=== PATIENT | female | born 1960 | race Two or more races ===

== ENCOUNTER 2024-09-05 19:20 | Inpatient (IN) | payer MEDICARE, BC, MEDICAID, SELFPAY ==
[2024-09-05 19:32] VITALS: PULSE 78; RESP 98; BMI 30.2
--- NOTE | 2024-09-05 19:33 | PD.EDADULT ---
ED General RME/HPI General Chief complaint: Abdominal Pain Stated complaint: ABDOMINAL PAIN Time Seen by Provider: 09/05/24 19:25 Arrival date/time: 09/05/24 19:20 CC: Distended abdomen HPI patient presents the ER via EMS from [facility] with the patient has a distended abdomen. 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 EMS report prior history of similar events. Patient her shoulders when asked any questions. Patient is awake alert and looking around but nonverbal. Vital signs per EMS are stable. RME / HPI RME / HPI narrative: HPI: Ms Mccoy a 63-year-old non verbal female patient with significant medical history who was brought in from [facility] with a chief complaint of distended abdomen. She has multiple hospitalizations for the same. Last BM : >12 hours ago Past medical history: CVA w/ residual right-sided weakness and expressive aphasia s/p PEG tube for malnutrition migraines and depression recurrent hospital admission for small bowel obstruction Social history: From [facility] , non verbal at baseline No past hx of tobacco smoking or alcohol use. Related Data Home Medications ?Medication ?Instructions ?Recorded ?Confirmed atorvastatin 40 mg tablet 40 mg feeding tube HS 07/31/21 05/28/24 hyperlipidemia bisacodyl 10 mg rectal suppository 10 mg OK Q72H PRN Constipation 11/17/21 05/28/24 (Dulcolax (bisacodyl)) amitriptyline 50 mg tablet 25 mg PO HS Depression 09/18/22 05/28/24 magnesium hydroxide 400 mg/5 mL 30 ml PO Q72H PRN Constipation 04/07/23 05/28/24 oral suspension (Milk of Magnesia) ondansetron HCl 8 mg tablet 8 mg PO Q6HR PRN Nausea/Vomiting 04/07/23 05/28/24 alendronate 70 mg tablet 70 mg PO QWEEK Osteoporosis 01/12/24 05/28/24 lactose-reduced food with fiber See Rx Instructions .Route .COMPLEX 01/12/24 05/28/24 0.06 gram-1.2 kcal/mL oral liquid (Jevity 1.2 Eleno) linaclotide 145 mcg capsule 145 mcg PO QDAY constipation 01/12/24 05/28/24 (Linzess) potassium chloride 20 mEq 20 meq BID 01/12/24 05/28/24 tablet,extended release(part/cryst) acetaminophen 325 mg tablet 325 mg PO BID PRN Mild Pain (1-3) 05/28/24 05/28/24 (Tylenol) docusate sodium 100 mg tablet 100 mg PO BID Constipation 05/28/24 05/28/24 lactulose 10 gram/15 mL oral 30 ml feeding tube QDAY 05/28/24 05/28/24 solution (Enulose) sodium phosphates 19 gram-7 118 ml OK QDAY PRN Constipation 05/28/24 05/28/24 gram/118 mL enema (Fleet Enema) Allergies Allergy/AdvReac Type Severity Reaction Status Date / Time hydrocodone [From [facility]] Allergy Severe Anxiety Verified 01/11/24 19:58 NSAIDS (Non-Steroidal Allergy Severe UNKNOWN Verified 01/11/24 19:58 Anti-Inflamma prochlorperazine Allergy Severe UNKNOWN Verified 01/11/24 19:58 ketorolac Allergy Intermediate UNKNOWN Verified 01/11/24 19:58 milk Allergy Intermediate VOMITING Verified 01/11/24 19:58 paroxetine Allergy Intermediate VOMITING Verified 07/31/21 15:10 codeine Allergy Mild ITCHING Verified 01/11/24 19:58 morphine Allergy Mild Swelling Verified 01/11/24 19:58 sulfamethoxazole Allergy Unknown Verified 01/11/24 19:58 trimethoprim Allergy Unknown Verified 01/11/24 19:58 Review of Systems Review of Systems ROS Unobtainable: unobtainable due to mental status Past Medical History Past Medical History NEUROLOGIC: Positive Neurological Disorders, Cerebrovascular Accident, Transient Ischemic Attacks (TIA), Peripheral Neuropathy and Migraine; Negative Dementia, Alzheimer's Disease, Parkinson's Disease, Brain Tumor, Meningitis, Seizures, Epilepsy, Multiple Sclerosis, Cerebral Palsy, Amyotrophic Lateral Sclerosis (ALS/Radha Gehrig's), Guillain-Guadalupita Syndrome, Spina Bifida, Paralysis, Valentine's Palsy, Subdural Hematoma, Head Trauma, Spinal Cord Injury or Traumatic Brain Injury CARDIAC: Positive Cardiac Disorders, Hypercholesterolemia, Hypertension and Hypotension; Negative Myocardial Infarction, Cardiac Arrhythmia, Atrial Fibrillation, Angina, Heart Murmur, Coronary Artery Disease, Atherosclerotic Heart Disease, Peripheral Vascular Disease, Aneurysm, Congestive Heart Failure, Congenital Heart Disease, Valvular Heart Disease, Rheumatic Fever, Cardiomyopathy, Edema, Pericarditis, Cellulitis, Deep Vein Thrombosis or Varicose Veins RESPIRATORY: Positive Chronic Obstructive Pulmonary Disease (COPD) and Asthma; Negative Bronchitis, Emphysema, Pneumonia, Pulmonary Fibrosis, Cystic Fibrosis, Tuberculosis, Pulmonary Embolism, Pulmonary Edema or Sleep Apnea GASTROINTESTINAL: Positive Gastrointestinal Disorders, Cirrhosis, Esparza's Esophagus, Hiatal Hernia and Gastroesophageal Reflux Disease; Negative Hepatitis, Pancreatitis, Celiac Disease, Gall Bladder Disease, Gastrointestinal Bleed, Esophageal Varices, Colitis, Ulcerative Colitis, Diverticulitis, Diverticulosis, Ulcer, Colorectal Cancer, Irritable Bowel, Crohn's Disease, Obstructive Bowel, Hemorrhoids or Obesity GENITOURINARY: Negative Genitourinary Disorders, Renal Disease, Kidney Stones, Polycystic Kidney Disease, Neurogenic Bladder, Inguinal Hernia, Dialysis, Prostate Cancer or Benign Prostatic Hyperplasia REPRODUCTIVE: Positive Previous Pregnancies; Negative Breast Cancer, Endometriosis, Genital Herpes, Gonorrhea, Pelvic Inflammatory Disease, Syphilis, Testicular Cancer or Uterine Prolapse MUSCULOSKELETAL: Positive Musculoskeletal Disorders, Arthritis and Carpal Tunnel Syndrome; Negative Muscular Dystrophy, Myasthenia Gravis, Marfan's Syndrome, Rheumatoid Arthritis, Osteoporosis, Degenerative Disk Disease, Gout, Scoliosis, Fibromyalgia, Fractures, Degenerative Joint Disease, Osteomyelitis or Poliovirus ENT: Negative Cataracts, Glaucoma, Blind, Retinal Detachment, Macular Degeneration, Ear Infection, Deafness, Head Trauma or Eye Prosthesis ENDOCRINE: Negative Endocrine Disorders, Diabetes Mellitus Type 1, Diabetes Mellitus Type 2, Hypoglycemia, Hampton's Syndrome, Barron's Disease, Hyperthyroidism, Hypothyroidism, Parathyroid Disease, Pituitary Disease, Systemic Lupus Erythematosus, Syndrome of Inappropriate Antidiuretic Hormone (SIADH), Adrenal Disease or Graves' Disease HEMATOLOGIC: Negative Blood Disorders, Anemia, Leukemia, Hemophilia, Thalassemia, Sickle Cell Disease or Clotting Problems PSYCHO/SOCIAL: Positive Schizophrenia, Recreational Drug Use, Bipolar Disorder, Depression and Anxiety; Negative Psychiatric Problems, Behavior Problems, Self-Mutilation, Attention Deficit Disorder, Attention Deficit Hyperactivity Disorder, Depression, Post Traumatic Stress Disorder or Eating Disorder OTHER HISTORY: Positive Hospitalization and Falls; Negative Autoimmune Disease, Down Syndrome, Autism, Developmental Delay, Shingles, Blood Transfusions, Blood Transfusion Reaction, Anesthesia Reactions, Organ Transplant, Chemotherapy, Radiation Therapy, Hyperbaric Therapy, MRSA, Clostridium Difficile, Cancer, Breast Cancer, Cervical Cancer, Colorectal Cancer, Lung Cancer, Ovarian Cancer, Prostate Cancer or Testicular Cancer Family History FAMILY HISTORY: Negative Family Psychiatric Problems, Family Respiratory Disorders, Family Cardiac Disorders, Family Gastrointestinal Problems, Family Cancer, Family Surgery or Family Anesthesia Reaction Surgical History SURGICAL: Positive Abdominal Surgery, Gastrostomy, Bowel Surgery and Joint Replacement; Negative Cardiac Surgery, Open Heart Surgery, Coronary Artery Bypass Graft, Valve Replacement, Vascular Surgery, Coronary Stent, Cardiac Catheterization, Pacemaker, Angiogram, Auto Implanted Cardiovert Defib, Carotid Endarterectomy, Endocrine Surgery, Thyroidectomy, Ear Surgery, Tympanostomy Tube, Eye Surgery, Nose Surgery, Oral Surgery, Tonsillectomy, Adenoidectomy, Cochlear Implant, Corneal Transplant, Throat Surgery, Tracheostomy, Gastric Bypass Surgery, Nephrectomy, Transurethral Resection, Amputation, Open Reduction Internal Fixation, Arthroscopy, Neurologic Surgery, Brain Shunt, Mastectomy, Lumpectomy, Hysterectomy, Tubal Ligation, Section, Vasectomy or Organ Transplant Social History SMOKING STATUS: Former smoker SECOND HAND EXPOSURE: No SUBSTANCE USE: does not use ED Exam Narrative Physical exam: [General: Appears not in any acute distress Head normocephalic HEENT: Within acceptable limits Neck is supple nontender Chest equal chest rise nontender to palpation Respiratory: Clear to auscultation no wheezes crackles or rubs CV: Rate rhythm is regular no murmurs rubs or clicks Abdomen is grossly distended firm but not rigid, nontender, diminished bowel sounds. Center abdomen G-tube protruding from a site is clean dry intact. Back: No CVA tenderness no spinous process tenderness from cervical spine thoracic and lumbar spine Skin: Intact no petechiae rash induration ulceration or crepitus Extremities: Moving all extremity against resistance cap refill less than 2 seconds neurosensory intact Neuro: Awake alert nonverbal hemiaplasia Course Course Course Narrative: @ 8 PM : CT abdomen consistent with SBO WBC elevated, gave Cipro x1 + Flagyl x1 Ordered Gastrograffin SB series Quality Measures none Orders Category Date Time Status DENNY Drain to Suction QSHIFT Care 09/05/24 21:[address] abdomen wo con Stat Exams 09/05/24 19:36 Completed XR small bowel single contrast Stat Exams 09/05/24 21:16 Ordered CBC Stat Lab 09/05/24 20:29 Completed CMP [Comprehensive Metabolic Panel] Stat Lab 09/05/24 20:29 Completed PT [Prothrombin Time with INR] Stat Lab 09/05/24 20:29 Completed PTT [Partial Thromboplastin Time] Stat Lab 09/05/24 20:29 Completed Urinalysis, C/S if Indicated Stat Lab 09/05/24 20:20 Received CIPROFLOXACIN/D5w 400 MG IVPB [Cipro Ivpb] Med 09/05/24 21:23 Active 400 mg in 200 ml IV X1 metroNIDAZOLE/NS 500 MG IVPB [Flagyl 500 mg IV] Med 09/05/24 21:24 Active 500 mg in 100 ml IV X1 Reevaluation(s) Reevaluation #1: 20:00 Re exam showed distended abdomen, no change from presentation. No active vomiting. With start decompression via G Tube. Non surgical abdomen at this time. Vital Signs Vital signs: Vital Signs Temperature 100.1 F 09/05/24 19:35 Pulse Rate 113 H 09/05/24 19:35 Respiratory Rate 20 09/05/24 19:35 Blood Pressure 90/67 09/05/24 19:35 Pulse Oximetry (%) 97 09/05/24 19:35 Oxygen Delivery Method Room Air 09/05/24 19:35 [facility] Patient data External records reviewed:: [facility] previous records and EMS form Clinical information provided by:: EMS Social determinants that could affect healthcare access:: none Patient has the following chronic illnesses:: Hemiaplasia, expressive aphasia. How is presenting disease/condition affected by chronic disease/condition?: uneffected by Evaluation data The following diagnostics were reviewed and interpreted by me:: lab results and radiology exam(s) Lab and/or radiology exams considered but not ordered:: CXR Interpretation Summary: SBO Medications Medications considered but not ordered:: Morphine Medication administrations:: Medication Administration History Heparin Sodium (Porcine) (Heparin Sod Inj 5000 Unit/Ml Vial) 5,000 unit SC Q8HR [facility] Stop: 09/19/24 21:59 Last Admin: 09/05/24 21:58 Dose: 5,000 unit Documented By: KD Co-signed By: CVL Ciprofloxacin/Dextrose (Cipro Ivpb) 400 mg in 200 mls @ 200 mls/hr IV X1 ONE Stop: 09/05/24 22:22 Last Admin: 09/05/24 21:44 Dose: 200 mls/hr Documented By: EE Metronidazole (Flagyl 500 Mg Iv) 500 mg in 100 mls @ 100 mls/hr IV X1 ONE Stop: 09/05/24 22:23 Sodium Chloride (Ns) 1,000 mls @ 75 mls/hr IV .[id number] [facility] Stop: 10/05/24 21:44 Last Admin: 09/05/24 21:49 Dose: 75 mls/hr Documented By: EE Continue Consultations Consultation(s) initiated? (list below): No Consultation #1 (Physician, Specialty, Details): None Diagnosis Differential Diagnosis ED Complaint MDM: Diverticulitis Most likely diagnosis given after review of the tests above:: SBO Admission Indicated Admission indicated?: indicated Explain why admission is indicated or not indicated:: SBO Admission Request Was there a request for admission?: Yes Admission Attestation Admission request attestation: Discussed case with Dr Jenkins from Hospitalist service regarding admission. Discussed patients ED course, exam findings, labs, and radiology results. The Hospitalist [agrees] to accept the patient for admission. Disposition Plan Disposition Plan: Admit Medical Decision Making MDM Narrative MDM Narrative: Patient is a 64 year old female with recurrent admissions for SBO, who presented with abdominal distensions. Imaging : CT abdomen consistent with SBO. Plan: Ordered Gastrograffin SB series via G Tube, can use G tube for suction to decompress. Strict instructions to HOLD suction for 45 mins post contrast. Differential Diagnosis Differential Diagnosis: Diverticulitis Lab Data 09/05/24 20:29 09/05/24 20:29 Labs: Lab Results 09/05/24 Range/Units 20:29 WBC 13.8 H (3.6-11.0) Thou/mm3 RBC 4.94 (4.00-5.20) Miln/mm3 Hgb 13.9 (12.0-16.0) g/dL Hct 43.8 (36.0-46.0) % MCV 89 (80-100) fL MCH 28.1 (25.0-35.0) pg MCHC 31.7 (31.0-37.0) g/dl RDW Std Deviation 43.1 (36.4-46.3) fL Plt Count 265 (140-440) Thou/mm3 Neut % (Auto) 50 (37-80) % Lymph % (Auto) 42 (10-50) % Wythe % (Auto) 6 (0-12) % Eos % (Auto) 2 (0-10) % Baso % (Auto) 0 (0-2.5) % Neut # (Auto) 6.9 (1.8-7.7) Thou/mm3 Lymph # (Auto) 5.8 H (1.0-4.8) Thou/mm3 Wythe # (Auto) 0.8 (0.0-0.8) Thou/mm3 Eos # (Auto) 0.3 (0.0-0.5) Thou/mm3 Baso # (Auto) 0.1 (0.0-0.2) Thou/mm3 Immature Gran # (Auto) 0.06 H (0.00-0.00) Thou/mm3 Absolute Nucleated RBC 0.00 (0.00-0.00) Thou/mm3 Immature Gran % 0 (0-0) % Nucleated RBC % 0 (0) /100 WBC PT 11.4 (9.0-12.2) Seconds INR 1.0 (0.9-1.3) APTT 30.1 (22.0-36.0) Seconds Sodium 141 (136-145) mMol/L Potassium 4.1 (3.4-5.1) mMol/L Chloride 111 H (98-107) mMol/L Carbon Dioxide 19.9 L (20.0-31.0) mMol/L Anion Gap 10 (7-16) BUN 11 (9-23) mg/dL Creatinine 0.8 (0.6-1.3) mg/dL Estim Creat Clear Calc 66.4 (>60) mL/min eGFR > 60 (60 - ) See Note BUN/Creatinine Ratio 14 (12-20) Ratio Glucose 140 H (74-106) mg/dL Calculated Osmolality 282 (275-295) Calcium 9.0 (8.3-10.6) mg/dL Corrected Calcium 9.0 (8.5-10.1) mg/dL Total Bilirubin 0.9 (0.3-1.2) mg/dL AST 37 H (0-34) U/L ALT 21 (10-49) U/L Alkaline Phosphatase 156 H (46-116) U/L Total Protein 8.2 (5.7-8.2) gm/dL Albumin 4.5 (3.4-4.8) gm/dL Globulin 3.7 H (2.3-3.5) gm/dL Albumin/Globulin Ratio 1.2 (1.2-2.2) Discharge Plan Plan Patient Disposition: Admit Acute Care w/in Hospital Patient condition on transfer: Stable Problem List Clinical Impression: SBO (small bowel obstruction) MD Attestation Attestation I, Dr. Yu Michael, was in the emergency department when the PA gave signout to the resident. I was present for the pertinent part of the history, physical exam, and reexamination. Her note is reviewed and I agree. I reviewed the patient has a blood pressure of 126/92 and she is not altered. She is awake and responding to her family member.
[2024-09-05 19:35] VITALS: BP 90/67; PULSE 113; RESP 20; TEMP 37.8; O2SAT 97
--- NOTE | 2024-09-05 19:36 | XR_ITS ---
Examination: CT abdomen without intravenous contrast contrast. CT pelvis without intravenous contrast Coronal 2-D reconstructions. Sagittal 2-D reconstructions. Date and time of exam:September 05, 2024 at 1957 hrs. Comparison May 28, 2024 Indications: Distended abdomen today CTDI: vol (mGy): 16.5 DLP: (mGycm): 760 Technique: Axial images of the abdomen and pelvis have been obtained, 3 mm slice thickness, without intravenous contrast 2-D sagittal coronal reconstructions Low dose protocols were performed. One or more of the following dose reduction techniques were used; automated exposure control, adjustment of the mA and/or KV according to patient size, use of iterative reconstruction technique. Findings: 15 mm nodule in the lingular segment left upper lobe Small pericardial effusion No focal liver lesions Cholelithiasis Gallbladder wall does not appear thickened Spleen is not enlarged No pancreatic or adrenal mass Gastrostomy tube satisfactory position Markedly distended small bowel loops, more prominent compared to the prior study Aorta not enlarged No hydronephrosis No free air 31 mm fat-containing umbilical hernia Impression: 15 mm nodule in the lingular segment left upper lobe, recommend PA lateral chest follow-up Markedly fluid distended small bowel loops, consider small bowel obstruction, recommend Gastrografin small bowel series follow-up
[2024-09-05 20:33] LABS: Collection Type, Urine Clean Catch; Squamous Epithelial Cell,Urine 0 /hpf (0-5)
[2024-09-05 20:55] LABS: Basophils # (Auto) 0.1 Thou/mm3 (0.0-0.2); Basophils % (Auto) 0 % (0-2.5); Eosinophils # (Auto) 0.3 Thou/mm3 (0.0-0.5); Eosinophils % (Auto) 2 % (0-10); Hematocrit 43.8 % (36.0-46.0); Hemoglobin 13.9 g/dL (12.0-16.0); Immature Granulocytes % (Auto) 0 % (0-0); Immature Granulocytes Auto 0.06 Thou/mm3 (0.00-0.00); Lymphocytes # (Auto) 5.8 Thou/mm3 (1.0-4.8); Lymphocytes % (Auto) 42 % (10-50); Mean Corpuscular HGB Conc 31.7 g/dl (31.0-37.0); Mean Corpuscular Hemoglobin 28.1 pg (25.0-35.0); Mean Corpuscular Volume 89 fL (80-100); Monocytes # (Auto) 0.8 Thou/mm3 (0.0-0.8); Monocytes % (Auto) 6 % (0-12); Neutrophils # (Auto) 6.9 Thou/mm3 (1.8-7.7); Neutrophils % (Auto) 50 % (37-80); Nucleated Red Blood Cell % 0 /100 WBC (0); Platelet Count 265 Thou/mm3 (140-440); RDW Standard Deviation 43.1 fL (36.4-46.3); Red Blood Count 4.94 Miln/mm3 (4.00-5.20); White Blood Count 13.8 Thou/mm3 (3.6-11.0)
[2024-09-05 20:59] LABS: Alanine Aminotransferase 21 U/L (10-49); Albumin, Serum 4.5 gm/dL (3.4-4.8); Albumin/Globulin Ratio 1.2 (1.2-2.2); Alkaline Phosphatase 156 U/L (46-116); Anion Gap 10 (7-16); Aspartate Amino Transferase 37 U/L (0-34); BUN/Creatinine Ratio 14 Ratio (12-20); Bilirubin,Total 0.9 mg/dL (0.3-1.2); Blood Urea Nitrogen 11 mg/dL (9-23); Carbon Dioxide 19.9 mMol/L (20.0-31.0); Chloride 111 mMol/L (98-107); Creatinine (Component) 0.8 mg/dL (0.6-1.3); Estimated Creatinine Clearance 66.4 mL/min (>60); Globulin 3.7 gm/dL (2.3-3.5); Glucose 140 mg/dL (74-106); Osmolality,Calculated 282 (275-295); Potassium 4.1 mMol/L (3.4-5.1); Sodium 141 mMol/L (136-145); Total Protein 8.2 gm/dL (5.7-8.2); eGFR > 60 See Note
[2024-09-05 21:16] LABS: Partial Thromboplastin Time 30.1 Seconds (22.0-36.0); Prothrombin Time 11.4 Seconds (9.0-12.2)
--- NOTE | 2024-09-05 21:16 | XR_ITS ---
Examination: Small bowel series Abdomen AP supine 4 views Exam date and time: September 05, 2024 0951 hrs. Indications: Abdominal pain and distention this week, small bowel obstruction pattern on CT abdomen pelvis September 05, 2024 1957 hrs. Technique And Findings: [employer] film demonstrates gastrostomy tube, air distended small bowel loops Patient received 120 cc Gastrografin, immediate 30 minute and 1 hour films show contrast remaining in the stomach Impression: Contrast remaining in the stomach Recommend follow-up abdomen films midnight, 2:00 AM, 4:00 AM, 6:00 AM
[2024-09-05 21:28] VITALS: BP 102/70; PULSE 104; RESP 17; O2SAT 97
[2024-09-05] MEDS: CIPROFLOXACIN/D5w 400 MG IVPB 400 MG/200 ML BAG 200 MG IV (21:44)
[2024-09-05 21:46] VITALS: TEMP 37.6
[2024-09-05] MEDS: SODIUM CHLORIDE 0.9% 1000 ML 1,000 ML 75 ML IV (21:49)
[2024-09-05] MEDS: HEPARIN SOD INJ 5000 UNIT/ML VIAL SC (21:58)
--- NOTE | 2024-09-05 22:04 | PD.RESHP ---
Documentation for date of: 09/05/24 HPI History of Present Illness Chief complaint: Abdominal distention History of present illness: A 64-year-old female with past medical history of CVA right hemiparesis, s/p PEG tube placement, migraine headaches, depression history of recurrent SBO who lives in facility brought to the hospital with chief complaints of abdominal distention since 3 days. Patient was able to communicate with minimal words and signs. Patient was apparently normal 3 days back, then she noticed mild abdominal discomfort and slowly progressive abdominal distention. On the day of admission, sister who is the metal bending machine operator of the patient noticed the abdomen is severely distended and called the RN in that facility following which patient was brought to the hospital. Patient is showing that she is having abdominal pain mainly in the lower abdomen. Denies vomitings, fever, burning micturition, chest pain, shortness of breath. Sister at bedside reported that she is having bowel movements but they are watery and minimal in amount and did not have any solid bowel movement over last 3 days. ED Course: -Initial vitals were blood pressure 90/67 mmHg, pulse rate 130 bpm, respiratory rate 20/min, temperature 100.1 ?F, SpO2 97% with room air. -Labs significant for WBC 13.8, Hb 13.9, bicarb 19.9, glucose 140. Urinalysis showed 1+ proteinuria, 2+ blood, 149 RBC, 712 WBC, 4+ bacteria. -Abdominal CT showed 15 mm nodule in the lingular segment left upper lobe, Markedly fluid distended small bowel loops. -In the ED, patient was given ciprofloxacin, IV fluids, metronidazole. -Patient was admitted for small bowel obstruction and UTI. Past medical history: CVA right hemiparesis, s/p PEG tube placement, migraine headaches, depression, recurrent episodes of SBO. Past surgical history: Left knee surgery, PEG tube placement. Social history: Stopped smoking 4 years ago, 60 pack years, stopped alcohol 4 years ago, denies other illicit drug abuse. Review of Systems Review of Systems Systems Reviewed: All systems reviewed, normal except as documented Exam Vital Signs Temp Pulse Resp BP Pulse Ox O2 Del Method 99.6 F 104 H 17 102/70 97 Room Air 09/05/24 21:46 09/05/24 21:28 09/05/24 21:28 09/05/24 21:28 09/05/24 21:28 09/05/24 21:28 Narrative Exam General: Awake. Sitting comfortably on the bed. HEENT: Normocephalic, atraumatic, mucous membranes moist. Heart: Regular rate and rhythm, no murmurs. Lungs: Clear to auscultation with no wheezing or crackles. Abdomen: Soft, moderately distended, mild tenderness in the hypogastric area, positive bowel sounds. ?No guarding or rebound tenderness. Neurologic: Alert and oriented x3, decreased movements noted on right upper extremity Extremities: No edema. Skin: No rash or ecchymoses. Results: Labs 09/05/24 20:29 09/05/24 20:29 Labs: Short CBC 09/05/24 Range/Units 20:29 WBC 13.8 H (3.6-11.0) Thou/mm3 Hgb 13.9 (12.0-16.0) g/dL Hct 43.8 (36.0-46.0) % Plt Count 265 (140-440) Thou/mm3 BMP 09/05/24 20:29 Sodium 141 Potassium 4.1 Chloride 111 H Carbon Dioxide 19.9 L BUN 11 Creatinine 0.8 Glucose 140 H Calcium 9.0 Liver Function 09/05/24 Range/Units 20:29 Total Bilirubin 0.9 (0.3-1.2) mg/dL AST 37 H (0-34) U/L ALT 21 (10-49) U/L Alkaline Phosphatase 156 H (46-116) U/L Albumin 4.5 (3.4-4.8) gm/dL Quality Measures Quality Measures none Advance care planning discussed with:: patient and sibling Medications Home Medications and Allergies Home Medications ?Medication ?Instructions ?Recorded ?Confirmed ?Type atorvastatin 40 mg tablet 40 mg feeding tube HS 07/31/21 05/28/24 History hyperlipidemia bisacodyl 10 mg rectal suppository 10 mg [place] Q72H PRN Constipation 11/17/21 05/28/24 History (Dulcolax (bisacodyl)) amitriptyline 50 mg tablet 25 mg PO HS Depression 09/18/22 05/28/24 History magnesium hydroxide 400 mg/5 mL 30 ml PO Q72H PRN Constipation 04/07/23 05/28/24 History oral suspension (Milk of Magnesia) ondansetron HCl 8 mg tablet 8 mg PO Q6HR PRN Nausea/Vomiting 04/07/23 05/28/24 History alendronate 70 mg tablet 70 mg PO QWEEK Osteoporosis 01/12/24 05/28/24 History lactose-reduced food with fiber See Rx Instructions .Route .COMPLEX 01/12/24 05/28/24 History 0.06 gram-1.2 kcal/mL oral liquid (Jevity 1.2 Eleno) linaclotide 145 mcg capsule 145 mcg PO QDAY constipation 01/12/24 05/28/24 History (Linzess) potassium chloride 20 mEq 20 meq BID 01/12/24 05/28/24 History tablet,extended release(part/cryst) acetaminophen 325 mg tablet 325 mg PO BID PRN Mild Pain (1-3) 05/28/24 05/28/24 History (Tylenol) docusate sodium 100 mg tablet 100 mg PO BID Constipation 05/28/24 05/28/24 History lactulose 10 gram/15 mL oral 30 ml feeding tube QDAY 05/28/24 05/28/24 History solution (Enulose) sodium phosphates 19 gram-7 118 ml [place] QDAY PRN Constipation 05/28/24 05/28/24 History gram/118 mL enema (Fleet Enema) Allergies Allergy/AdvReac Type Severity Reaction Status Date / Time hydrocodone [From Totz] Allergy Severe Anxiety Verified 01/11/24 19:58 NSAIDS (Non-Steroidal Allergy Severe UNKNOWN Verified 01/11/24 19:58 Anti-Inflamma prochlorperazine Allergy Severe UNKNOWN Verified 01/11/24 19:58 ketorolac Allergy Intermediate UNKNOWN Verified 01/11/24 19:58 milk Allergy Intermediate VOMITING Verified 01/11/24 19:58 paroxetine Allergy Intermediate VOMITING Verified 07/31/21 15:10 codeine Allergy Mild ITCHING Verified 01/11/24 19:58 morphine Allergy Mild Swelling Verified 01/11/24 19:58 sulfamethoxazole Allergy Unknown Verified 01/11/24 19:58 trimethoprim Allergy Unknown Verified 01/11/24 19:58 Visit Medications Heparin Sodium (Porcine) (Heparin Sod Inj 5000 Unit/Ml Vial) 5,000 unit SC Q8HR GIANNA Stop: 09/19/24 21:59 Last Admin: 09/05/24 21:58 Dose: 5,000 unit Ciprofloxacin/Dextrose (Cipro Ivpb) 400 mg in 200 mls @ 200 mls/hr IV X1 ONE Stop: 09/05/24 22:22 Last Admin: 09/05/24 21:44 Dose: 200 mls/hr Metronidazole (Flagyl 500 Mg Iv) 500 mg in 100 mls @ 100 mls/hr IV X1 ONE Stop: 09/05/24 22:23 Sodium Chloride (Ns) 1,000 mls @ 75 mls/hr IV .[id number] GIANNA Stop: 10/05/24 21:44 Last Admin: 09/05/24 21:49 Dose: 75 mls/hr Assessment & Plan Plan A 64-year-old female with past medical history of CVA right hemiparesis, s/p PEG tube placement, migraine headaches, depression history of recurrent SBO who lives in facility brought to the hospital with chief complaints of abdominal distention since 3 days and admitted for small bowel obstruction and UTI # Small bowel obstruction # Likely secondary to constipation from prolonged immobilization - Presented with abdominal distention and lower abdominal pain since 3 days - Reported that patient is having bowel movements, watery without any solid stool noted - Denies fever, nausea, vomiting, shortness of breath, chest pain. - Per sister, patient takes food both orally and through PEG tube, but patient prefers through oral route - On examination, moderately distended abdomen with tenderness in the lower abdomen noted - Vitals at the time of admission are blood pressure 90/67 mmHg, pulse rate 113 bpm, respiratory rate 20/min, temperature 100 0.8 urinalysis showed1 ?F, SpO2 97% with room air - CT abdomen done showed possible small bowel obstruction with lots of stool noted Plan - Started on IV fluids - Ordered small bowel series - Noted to have bowel movement in the ED - Recommended to consult general surgery if the symptoms does not resolve # Fever # UTI # Leukocytosis # History of frequent urinary tract infections - Patient is complaining of lower abdominal pain, as the patient is nonverbal cannot express much symptoms - Patient had a history of recurrent UTIs according to the sister by the bedside - Reported that they did not notice any fever in the facility - Patient was found to have a temperature of 100.1 ?F at the time of admission. WBC is 13.8 - Urine analysis showed hazy urine, 1+ proteinuria, 2+ blood, 149 RBC, 712 WBC, 4+ bacteria Plan - Urine and blood cultures were sent - Started on ceftriaxone 1 g IV daily - Phenazopyridine 100 Mg p.o. 3 times daily is started # Pulmonary nodule # Incidental finding # History of 60 pack years - CT chest done in 12/2023 showed a pulmonary nodule of 12 mm - Abdominal CT done at the time of admission showed pulmonary nodule of 15 mm - Recommended to follow-up in outpatient basis for ruling out neoplasm, as patient had significant smoking history # History of CVA # Depression and migraine - Medication reconciliation is ordered - Resume medications Hospital Maintenance: Dispo: medsurg DVT ppx: heparin GI ppx:not needed Diet: N.p.o IV lines: Peripheral Code status: Full Patient plan of care was discussed with the attending physician, Dr. Gregory Faith, PGY1 Attending Provider Attestation/Addendum Pt was evaluated and plan formulated together with the housestaff team. I have reviewed the residents note above and agree with most of its content. Please refer to the residents note for additional details.
[2024-09-05 22:23] LABS: Bacteria,Urine 4+; Budding Yeast,Urine Present; RBC,Urine 149 /hpf (0-3); WBC,Urine 712 /hpf (0-5)
[2024-09-05 22:49] LABS: Bilirubin,Urine Negative (Negative); Blood,Urine 2+ (Negative); Color,Urine Yellow (Lt Yel-Yel); Glucose, Urine Negative (Negative); Hyaline Casts,Urine 2 /hpf (0-1); Ketones,Urine Negative (Negative); Leukocyte Esterase,Urine Positive (Negative); Nitrite,Urine Positive (Negative); PH,Urine 5.5 (5.0-7.0); Protein,Urine 1+ (Neg - Trace); Specific Gravity,Urine 1.027 (1.001-1.035); Urobilinogen,Urine Negative mg/dL (0.0-1.0)
[2024-09-05 22:57] LABS: Clarity,Urine Hazy (Clear/Hazy)
[2024-09-05 22:58] LABS: Culture Indicated,Urine Yes
[2024-09-05] MEDS: metroNIDAZOLE/NS 500 MG IVPB 500 MG/100 ML BAG 100 MG IV (23:09)
[2024-09-05] MEDS: ACETAMINOPHEN IVPB 1,000 MG/100 ML VIAL 250 MG IV (23:10)
--- NOTE | 2024-09-05 23:35 | PC.NURSE ---
SEPSIS ALERT CALLED. PER DR FOY PT DOES NOT REQUIRE SEPSIS ALERT.
[2024-09-05 23:45] LABS: Lactate (Lactic Acid) 0.9 mMol/L (0.4-2.0)
[2024-09-05 23:49] VITALS: BP 111/61; PULSE 97; RESP 17; TEMP 36.6; O2SAT 97
[2024-09-06] VITALS (7 sets, daily range): BP systolic 97–129; BP diastolic 55–75; PULSE 78–95; RESP 17–20; TEMP 35.9–36.8; O2SAT 95–100
--- NOTE | 2024-09-06 02:00 | XR_ITS ---
Examination: Abdomen AP single view Technique: AP portable supine abdomen, single view Exam date and time: September 06, 2024 0148 hrs. Indications: Abdominal distention and pain this week, small bowel obstruction pattern on CT abdomen pelvis September 05, 2024, forearm delayed film post small bowel series Findings: Most of the contrast in the stomach, some contrast is present diluted mildly dilated small bowel loops Impression: Most of the contrast remains in the stomach Additional delayed films will be obtained
--- NOTE | 2024-09-06 04:00 | XR_ITS ---
Examination: Abdomen AP single view Technique: AP portable supine abdomen, single view Exam date and time: September 06, 2024 at 0358 hrs. Indications: Abdominal pain and distention this week, dilated small bowel loops on CT abdomen pelvis September 05, 2024, C4 delayed film post small bowel series Findings: Contrast is present throughout small bowel loops, including relatively nondistended small bowel loops in the ileal region Impression: The findings are not diagnostic for small bowel obstruction, additional delayed films will be obtained
[2024-09-06] MEDS: HEPARIN SOD INJ 5000 UNIT/ML VIAL SC ×2 (05:52→13:40)
--- NOTE | 2024-09-06 06:00 | XR_ITS ---
Examination: Abdomen AP single view Technique: AP portable supine abdomen, single view Exam date and time: September 06, 2024 0551 hrs. Indications: Abdominal pain and distention this week, small bowel obstruction pattern on CT abdomen pelvis September 05, 2024, 8 hour delayed film post small bowel series beginning last evening Findings: Much of the contrast is currently present in the colon Impression: Negative for complete small bowel obstruction
[2024-09-06 06:08] LABS: Basophils % (Auto) 0 % (0-2.5); Eosinophils # (Auto) 0.2 Thou/mm3 (0.0-0.5); Eosinophils % (Auto) 2 % (0-10); Hematocrit 36.4 % (36.0-46.0); Hemoglobin 11.7 g/dL (12.0-16.0); Immature Granulocytes % (Auto) 0 % (0-0); Immature Granulocytes Auto 0.05 Thou/mm3 (0.00-0.00); Lymphocytes # (Auto) 4.7 Thou/mm3 (1.0-4.8); Lymphocytes % (Auto) 41 % (10-50); Mean Corpuscular HGB Conc 32.1 g/dl (31.0-37.0); Mean Corpuscular Hemoglobin 28.4 pg (25.0-35.0); Mean Corpuscular Volume 88 fL (80-100); Monocytes # (Auto) 0.6 Thou/mm3 (0.0-0.8); Monocytes % (Auto) 5 % (0-12); Neutrophils % (Auto) 52 % (37-80); Nucleated Red Blood Cell % 0 /100 WBC (0); Platelet Count 176 Thou/mm3 (140-440); RDW Standard Deviation 42.4 fL (36.4-46.3); Red Blood Count 4.12 Miln/mm3 (4.00-5.20); White Blood Count 11.5 Thou/mm3 (3.6-11.0)
[2024-09-06 06:33] LABS: Anion Gap 8 (7-16); BUN/Creatinine Ratio 18 Ratio (12-20); Blood Urea Nitrogen 11 mg/dL (9-23); Calcium 8.1 mg/dL (8.3-10.6); Carbon Dioxide 23.4 mMol/L (20.0-31.0); Chloride 112 mMol/L (98-107); Creatinine (Component) 0.6 mg/dL (0.6-1.3); Estimated Creatinine Clearance 92.6 mL/min (>60); Glucose 109 mg/dL (74-106); Magnesium 1.8 mg/dL (1.6-2.6); Osmolality,Calculated 285 (275-295); Phosphorous 2.9 mg/dL (2.4-5.1); Potassium 3.4 mMol/L (3.4-5.1); Sodium 143 mMol/L (136-145); eGFR > 60 See Note
[2024-09-06] MEDS: cefTRIAXone/D5w 1gm IV premix 50 ML IV (08:20)
[2024-09-06] MEDS: LACTULOSE SYRUP 20 GM/30 ML UDC GT (08:24)
[2024-09-06] MEDS: DOCUSATE SOD LIQD 100 MG/10 ML UDC PO (08:24)
[2024-09-06] MEDS: POTASSIUM CHLORIDE 10% 20 MEQ/15 ML UDC GT (08:25)
--- NOTE | 2024-09-06 10:57 | PC.SS ---
Patient is alert/oriented. She is a resident from [facility]. Patient was admitted for SBO. Patient states her sister, Noreen, is the alt medical decision maker and p.o.a. Patient has d/c orders to return today. PCP: Dr. Camacho. [facility] cannot transport patient today. They confirmed patient can d/c via [facility]. SS will contact [facility] transport if family cannot afford payment. Facility is aware of discharge.
[2024-09-06] MEDS: Milk Of Magnesia Susp 30 ML UDC GT (10:58)
--- NOTE | 2024-09-06 11:05 | ESDS_ITS ---
<Statement entered by Danay Michel MD - 09/11/24 07:59> I reviewed above note and agree with findings and plans. I have also personally examined the patient with medicine team and went over assessment and plan with medical team including internal wholesaler and resident physician. <Statement entered by Vaishnavi Waite MD - 09/06/24 13:21> I discussed with and supervised my co-resident involved in the care of this patient. I agree with the assessment and plan as documented above. Vaishnavi Waite,PGY-3 Disclaimer: Despite multiple revisions, due to the dictation software being used, the document below may not be free of grammatical errors including phonetic/typographic errors. However, this does not deter from our commitment to providing health care in the patient's best interest in mind. Planned Discharge Date 09/06/24 DS: Providers Provider Date of admission: 09/05/24 21:40 Primary care physician: Martha Camacho MD Admitting Provider: Dave Jenkins MD Attending Provider on Admission: Dave Jenkins MD Consults: 09/06/24 06:26 Referral Wound Care Routine Comment: 09/06/24 10:28 Referral Registered Dietitian Routine Comment: Attending Provider on DC: Danay Michel MD Discharging Provider: Danay Michel MD DS: Diagnosis Problem List Completed Was Problem List Reviewed/Reconciled?: Yes Hospital Course Hospital Course Hospital course: 64-year-old female with past medical history of CVA with residual aphasia and hemiplegia, nonverbal at baseline, s/p PEG tube, recurrent SBO's, migraines, and depression was admitted to the hospital on 09/06/2024 due to concerns for SBO. Initially patient came into the ER with complaints of abdominal distention for the past 3 days as well as abdominal discomfort. Initially patient was mildly tachycardic and afebrile. Initial labs were relevant for mild leukocytosis (13.8), NAGMA (bicarb 19.9), mild transaminitis (AST 37 and alkaline phosphatase 156), and UA was positive for bacteria. Initial imaging included abdomen CT which showed an incidental finding of a 15 mm nodule in the left upper lobe as well as fluid distended small bowel loops concerning for SBO. Small bowel series with Gastrografin was initiated during overnight and SBO was ruled out. Patient have bowel movement as well overnight. On the morning after admission patient was stable and she was at baseline and her WBCs had down trended and she did not spike any fevers. At the time of discharge patient was stable enough to be discharged back to a assisted facility. Discharge plan: ? Please follow-up with your primary care physician in 1 week after discharge ? You have been started on nitrofurantoin 100 mg twice daily for 3 days. ?Please continue all other home medications as prescribed ?Please come back to ER if symptoms persist or worsen. Problems list: . #SBO, rule out #UTI #Constipation #Incidental finding of pulmonary nodule, 15 mm #Past smoker #Hx of CVA with residual right hemiparesis and aphasia #Hx of depression #Hx of migraines #PEG tube Case disclosed with Attending Dr. Michel and My senior Dr. Waite PGY3. Blair Hernandez PGY1 Status at Discharge Overall status at discharge: patient is progressing back to baseline Time Spent with Patient Time attestation: Total time spent providing and/or coordinating discharge services: >35 min Exam Vital Signs Temp Pulse Resp BP Pulse Ox O2 Del Method 97.7 F 88 18 121/56 L 96 Room Air 09/06/24 08:00 09/06/24 10:56 09/06/24 10:56 09/06/24 08:00 09/06/24 10:56 09/06/24 08:00 Narrative Exam General: Awake, following commands, in no acute distress Eyes: PERRL, EOMI. Anicteric, vision grossly intact. Ears: No ear pain, no ear discharge, Hearing grossly intact. Nose: No nasal discharge. Mouth/Throat: Dry mucous membranes, no redness, no lesions. Neck: Neck supple, non-tender, no cervical lymphadenopathy. Lungs: Clear JSOE to auscultation and percussion, No accessory muscle use. Cardio: Normal S1/S2, regular rhythm, no murmurs, no JVD Abdomen: Soft, but mildly distended, non-tender, no palpable masses, peristalsis present, no guarding or rebound. Extremities: Symmetrical, no significant deformities, no peripheral edema , non-tender, peripheral pulses presents. Skin: No rashes, no lesions, warm to touch. Neuro: No focal neurological deficits. Decreased movement on right upper and lower extremity, left side upper and lower extremity motor and sensory intact. Able to follow commands and able to not to yes and no questions. Discharge Plan Plan Patient Disposition: Xfer Skilled Nsg Fac (SNF) Patient condition on transfer: Stable Care Plan Goals: ? Please follow-up with your primary care physician in 1 week after discharge ? You have been started on nitrofurantoin 100 mg twice daily for 3 days. ?Please continue all other home medications as prescribed ?Please come back to ER if symptoms persist or worsen. Prescriptions/Referrals Prescriptions/Med Rec: New nitrofurantoin macrocrystal 100 mg capsule 100 mg PO BID Qty: 6 0RF Rx Instructions: must administer with a meal/food Continued atorvastatin 40 mg tablet 40 mg feeding tube HS Rx Instructions: give one tavlet via G-tube at bedtime for Hyperlipidemia bisacodyl [Dulcolax (bisacodyl)] 10 mg Suppository 10 mg [place] Q72H PRN (Reason: Constipation) Rx Instructions: Insert one rectally every 72hours as needed for constipation IF MOM is ineffective amitriptyline 50 mg Tablet 25 mg PO HS Rx Instructions: give one tablet by mouth at bedtime for depression potassium chloride 20 mEq tablet,ER particles/crystals 20 meq BID Rx Instructions: Give 1 tablet 20 mEq via G-tube 2x a day for hypokalemia, dissolve in water before administering via tube Linzess 145 mcg capsule 145 mcg PO QDAY Rx Instructions: hold for loose stools alendronate 70 mg tablet 70 mg PO QWEEK Rx Instructions: Give 1 tabletby mouth in the morning every Sun for osteoporosis. Jevity 1.2 Eleno 0.06 gram-1.2 kcal/mL Liquid See Rx Instructions .ROUTE .COMPLEX Rx Instructions: 237 mL 3x a day via feeding tube related to encounter for attention to gastronomy gabapentin 300 mg capsule 300 mg PO Q8HR ipratropium-albuterol 0.5 mg-3 mg(2.5 mg base)/3 mL Solution For Nebulization 3 ml INHALATION QID Rx Instructions: FOR SOB UNTIL 09/29/2024 23:59 ondansetron HCl 8 mg Tablet 8 mg PO Q6HR PRN (Reason: Nausea/Vomiting) magnesium hydroxide [Milk of Magnesia] 400 mg/5 mL Suspension 30 ml PO Q72H PRN (Reason: Constipation) Rx Instructions: if no BM for 3 consecutive days lactulose [Enulose] 10 gram/15 mL solution 30 ml feeding tube BID Rx Instructions: Give 30ml via G-Tube one time a day for HOLD for diarrrhea acetaminophen [Tylenol] 325 mg Tablet 650 mg PO Q12HR PRN (Reason: Mild Pain (1-3)) Rx Instructions: Give w tablet via G-tube every 12 hours hours as needed for Mild Pain (1-3) APAP NTE 3grams/24hrs Fleet Enema 19-7 gram/118 mL Enema 118 ml [place] QDAY PRN (Reason: Constipation) Rx Instructions: Insert 1 application rectally every 72 hours as needed for constipation if MOM/DULCOLAX SUPPOSITORY ineffective. docusate sodium 100 mg Tablet 100 mg PO BID Rx Instructions: VIA G TUBE Referrals: Martha Camacho MD [Primary Care Provider] - Patient/Caregiver Discharge Instructions Other Discharge Activity Instructions:: ? Please follow-up with your primary care physician in 1 week after discharge ? You have been started on nitrofurantoin 100 mg twice daily for 6 days. ?Please continue all other home medications as prescribed ?Please come back to ER if symptoms persist or worsen. Print Language: American Stand Alone Forms: Reba Award Info., Patient Portal Info Letter Discharge Order Discharge Orders: Discharge (Routine); Ordered 09/06/24 Ordered By: Blair Hernandez Quality Discharge Quality Measures VTE prophylaxis
[2024-09-06] MEDS: GABAPENTIN 300 MG CAPSULE PO (13:41)
== END 2024-09-06 18:05 | disposition skilled nursing facility (03) | DRG 392 ==
LOC: SERX 21:47 → SERHOLD 21:50 → S3NX 09-06 00:18
PROVIDERS: Registered Nurse General Practice; Admitting Provider Internal Medicine; Emergency Provider Emergency Medicine; PCP Hospitalist; Visit Provider Internal Medicine
DX: K59.00 Constipation, unspecified (principal); I69.351 Hemiplegia and hemiparesis following cerebral infarction affecting right dominant side; N39.0 Urinary tract infection, site not specified; I69.320 Aphasia following cerebral infarction; G43.909 Migraine, unspecified, not intractable, without status migrainosus; R91.1 Solitary pulmonary nodule; F32.A Depression, unspecified; Z93.1 Gastrostomy status; Z87.891 Personal history of nicotine dependence; Z87.440 Personal history of urinary (tract) infections; Z88.5 Allergy status to narcotic agent; Z88.2 Allergy status to sulfonamides
CPT/HCPCS: 36415; 74018; 74150; 74250; 80048; 80053; 81001; 83605; 83735; 84100; 85025; 85610; 85730; 86225; 87040; 87077; 87081; 87086; 87186; 94664; 96365; 96372; 99285; A9270; J0131; J0696; J0744; J1643; J3490; J7030; J1836

== ENCOUNTER 2024-11-15 20:17 | Inpatient (IN) | payer MEDICARE, BC, SELFPAY ==
[2024-11-15 20:23] VITALS: BP 115/75; PULSE 115; RESP 17; TEMP 36.9; O2SAT 97
[2024-11-15 20:25] VITALS: BMI 34.0
[2024-11-15 20:33] VITALS: PULSE 101; RESP 20; O2SAT 96
[2024-11-15 22:34] VITALS: BP 106/81; PULSE 122; RESP 22; TEMP 39.1; O2SAT 99
--- NOTE | 2024-11-15 23:13 | EKG_ITS ---
[facility] Test Date: 2024-11-15 Pat Name: LES PRINCE Department: Room: - Gender: Female Certified Adaptive Physical Educator: : 1960 Requested By: Yu Amin Order Number: [id number] Reading MD: Yu Amin Measurements Intervals [place] Rate: 116 P: 49 MS: 163 QRS: 53 QRSD: 71 T: 15 QT: 320 QTc: 445 Interpretive Statements SINUS TACHYCARDIA POSSIBLE ANTERIOR MYOCARDIAL INFARCTION , PROBABLY OLD [30 ms Q WAVE IN V3/V4, OR R < 0.2 mV IN V4] ABNORMAL RHYTHM ECG Compared to ECG 01/11/2024 20:14:41 Myocardial infarct finding now present Sinus rhythm no longer present /store/S0/[id number]
--- NOTE | 2024-11-15 23:13 | PD.EDADULT ---
ED General RME/HPI General Chief complaint: Neck Pain/Injury Stated complaint: EYE AND NECK PAIN Source: family and EMS Arrival date/time: 11/15/24 20:17 Mode of arrival: EMS Limitations: no limitations RME / HPI RME / HPI narrative: Dr. 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 The patient has had redness to the left face now for 7 days as per the daughter. She states that she has some discharge coming from the congregation on the left nasal area that is now draining today. The redness started and extended to her left cheek, left neck, and did not know that she had a fever. She denies sore throat, hoarseness, or difficulty swallowing. The patient was noted to have a fever here in the emergency department. [facility] staff report the patient is currently on clindamycin, with two doses administered?most recently at 0900 today. Further history is limited due to the patient?s baseline nonverbal status. Information obtained from [facility] staff and chart review. Related Data Home Medications ?Medication ?Instructions ?Recorded ?Confirmed atorvastatin 40 mg tablet 40 mg feeding tube HS 07/31/21 09/06/24 hyperlipidemia bisacodyl 10 mg rectal suppository 10 mg VA Q72H PRN Constipation 11/17/21 09/06/24 (Dulcolax (bisacodyl)) amitriptyline 50 mg tablet 25 mg PO HS Depression 09/18/22 09/06/24 magnesium hydroxide 400 mg/5 mL 30 ml PO Q72H PRN Constipation 04/07/23 09/06/24 oral suspension (Milk of Magnesia) ondansetron HCl 8 mg tablet 8 mg PO Q6HR PRN Nausea/Vomiting 04/07/23 09/06/24 alendronate 70 mg tablet 70 mg PO QWEEK Osteoporosis 01/12/24 09/06/24 lactose-reduced food with fiber See Rx Instructions .Route .COMPLEX 01/12/24 05/28/24 0.06 gram-1.2 kcal/mL oral liquid (Jevity 1.2 Eleno) linaclotide 145 mcg capsule 145 mcg PO QDAY constipation 01/12/24 09/06/24 (Linzess) potassium chloride 20 mEq 20 meq BID 01/12/24 09/06/24 tablet,extended release(part/cryst) acetaminophen 325 mg tablet 650 mg PO Q12HR PRN Mild Pain (1-3) 05/28/24 09/06/24 (Tylenol) docusate sodium 100 mg tablet 100 mg PO BID Constipation 05/28/24 09/06/24 lactulose 10 gram/15 mL oral 30 ml feeding tube BID 05/28/24 09/06/24 solution (Enulose) sodium phosphates 19 gram-7 118 ml VA QDAY PRN Constipation 05/28/24 09/06/24 gram/118 mL enema (Fleet Enema) gabapentin 300 mg capsule 300 mg PO Q8HR NEUROPATHY 09/06/24 09/06/24 ipratropium 0.5 mg-albuterol 3 mg 3 ml inhalation QID 09/06/24 09/06/24 (2.5 mg base)/3 mL nebulization soln Previous Rx's ?Medication ?Instructions ?Recorded nitrofurantoin macrocrystal 100 mg 100 mg PO BID #6 caps 09/06/24 capsule Allergies Allergy/AdvReac Type Severity Reaction Status Date / Time hydrocodone (From [place]) Allergy Severe Anxiety Verified 01/11/24 19:58 NSAIDS (Non-Steroidal Allergy Severe UNKNOWN Verified 01/11/24 19:58 Anti-Inflamma prochlorperazine Allergy Severe UNKNOWN Verified 01/11/24 19:58 ketorolac Allergy Intermediate UNKNOWN Verified 01/11/24 19:58 milk Allergy Intermediate VOMITING Verified 01/11/24 19:58 paroxetine Allergy Intermediate VOMITING Verified 07/31/21 15:10 codeine Allergy Mild ITCHING Verified 01/11/24 19:58 morphine Allergy Mild Swelling Verified 01/11/24 19:58 sulfamethoxazole Allergy Unknown Verified 01/11/24 19:58 trimethoprim Allergy Unknown Verified 01/11/24 19:58 Review of Systems Review of Systems Systems Reviewed: All systems reviewed, normal except as documented ED Exam General Limitations: Present no limitations General appearance: Present alert and in no apparent distress Head Head exam: Present atraumatic Eye Eye exam: Present other (Patient has a 1 cm area of raised pimple with minimal expressible yellow discharge.) ENT ENT exam: Present other (Patient has left cheek erythema, no swelling. Erythema extends to her neck, chin, and lower mouth. No tongue involvement. No trismus.) Neck Neck exam: Present normal inspection, full ROM and trachea midline Chest Chest inspection: Present normal inspection and symmetric chest wall rise Respiratory Respiratory exam: Absent respiratory distress, wheezes, stridor or accessory muscle use Cardiovascular Cardiovascular exam: Present regular rate, tachycardia and normal heart sounds Abdominal Exam Abdominal exam: Present soft and normal bowel sounds Extremities Exam Extremities exam: Present normal inspection and full ROM Back Exam Back exam: Present normal inspection and full ROM Neurological Exam Neurological exam: Present alert and other (Baseline paralysis on the patient's right.) Psychiatric Psychiatric exam: Present normal affect and normal mood Skin Skin exam: Present warm, dry, intact, rash, erythema and other (No fluctuance on the face); Absent pallor Course Course Course Narrative: 2227 Sepsis alert initiated. Orders made at this time are congruent with ED Adult Sepsis Order List. Re-evaluation is to be completed. 2313: Fluids started. 0012: Sepsis reassessment performed consisting of lab review, vitals, physical exam including auscultation of heart, lungs, and visual evaluation of capillary refills, mucosal membranes and extremities. Quality Measures Possible source: skin/soft tissue Blood cultures ordered: yes Antibiotic ordered: Yes Pertinent labs: 11/15/24 23:46 Lactic Acid 1.1 mMol/L (0.4-2.0) Procalcitonin 0.08 ng/ml (0.0-0.49) sepsis Orders Category Date Time Status CT Screening NOW Care 11/16/24 01:36 Active Pick Out Hand STAT Care 11/15/24 23:13 Active Continuous Pulse Oximetry STAT Care 11/15/24 23:13 Completed EKG (ED ONLY) *Do not use* NOW Care 11/15/24 23:13 Completed In and Out Catheter X1PRN Care 11/15/24 23:13 Active Insert IV NOW Care 11/15/24 23:13 Active NPO STAT Care 11/15/24 23:13 Active Strict Intake and Output Routine Care 11/15/24 23:[address] soft tissue neck w con Stat Exams 11/16/24 01:36 Taken EKG (ED Only) Stat Exams 11/15/24 23:13 Draft XR chest 1V SEPSIS PROTOCOL Stat Exams 11/15/24 23:49 Taken B-Type Natriuretic Peptide Stat Lab 11/15/24 23:46 Completed Blood Culture (Lab) Stat Lab 11/15/24 23:46 Received CBC Stat Lab 11/15/24 23:46 Completed Comprehensive Metabolic Panel Stat Lab 11/15/24 23:46 Completed LDH (Lactate Dehydrogenase) Stat Lab 11/15/24 23:46 Completed Lactate (Lactic Acid) Stat Lab 11/15/24 23:46 Completed Lipase Stat Lab 11/15/24 23:46 Completed Magnesium Stat Lab 11/15/24 23:46 Completed Partial Thromboplastin Time Stat Lab 11/15/24 23:46 Completed Phosphorous Stat Lab 11/15/24 23:46 Completed Procalcitonin Stat Lab 11/15/24 23:46 Completed Prothrombin Time with INR Stat Lab 11/15/24 23:46 Completed Troponin I Stat Lab 11/15/24 23:46 Completed Urinalysis Stat Lab 11/15/24 04:30 Completed Urine Culture Stat Lab 11/15/24 04:30 Received Wound Culture and Gram Stain Stat Lab 11/15/24 23:36 Received Acetaminophen Ivpb [Ofirmev Inj] Med 11/16/24 03:58 Discontinued 1,000 mg in 100 ml IV Q6HR Lactulose Syrup [Enulose Syrup] Med 11/15/24 23:26 Discontinued 20 gm GT X1 ONE Sodium Chloride 0.9% 1000 ml [Ns] 1,986 ml Med 11/15/24 23:13 Discontinued IV 1,986 mls/hr Vancomycin Inj 1,000 mg Med 11/15/24 23:28 Discontinued Sodium Chloride 0.9% 250 ml [Ns] 250 ml IV X1 cefTRIAXone/D5w 1gm IV premix [Rocephin/D5w 1gm IV Med 11/15/24 23:28 Discontinued premix] 1 gm in 50 ml IV X1 Oxygen Delivery NOW RT 11/15/24 23:13 Active Vital Signs Vital signs: Vital Signs Temperature 98.4 F 11/15/24 20:23 Pulse Rate 115 H 11/15/24 20:23 Respiratory Rate 17 11/15/24 20:23 Blood Pressure 115/75 11/15/24 20:23 Pulse Oximetry (%) 97 03/26/25 20:23 Oxygen Delivery Method Room Air 11/15/24 20:23 [facility] Patient data External records reviewed:: [facility] previous records (Per chart review, patient was admitted here on 09/05/24 for SBO.) and EMS form Clinical information provided by:: EMS and family Social determinants that could affect healthcare access:: housing (SNF resident) Patient has the following chronic illnesses:: CVA with residual aphasia and hemiplegia, nonverbal at baseline, s/p PEG tube, recurrent SBO's, migraines, and depression How is presenting disease/condition affected by chronic disease/condition?: uneffected by Evaluation data The following diagnostics were reviewed and interpreted by me:: lab results, radiology exam(s) and EKG tracing(s) Lab and/or radiology exams considered but not ordered:: none Interpretation Summary: CT scan of the neck with intravenous contrast (axial sections with sagittal and coronal reformats) November 16, 2024 at 0250 hours Clinical History: 64 yo old with cellulitis face, chin, cheek, left. Comparison: None. Findings: The nasopharynx, oropharynx, hypopharynx, supraglottic and infraglottic larynx, vocal cords and upper trachea are unremarkable. The epiglottis and aryepiglottic folds appear unremarkable. No enhancing lesion or fluid collection is identified. The vessels of the neck are well opacified. No filling defect is seen. The superficial soft tissues of the neck are unremarkable. Mild subcutaneous facial fat edema. Partially imaged consolidation in the left upper lung. Impression: 1. Mild subcutaneous facial fat edema, compatible with cellulitis. 2. No collections. 3. Partially imaged consolidation in the left upper lung. Correlation with imaging of the chest is recommended. Report Electronically Signed By: Pascual Dubon 11/16/2024 4:20:43 AM [EST] Medications Medications considered but not ordered:: none Medication administrations:: Medication Administration History Acetaminophen (Acetaminophen 325 Mg Tablet) 650 mg PO Q6H PRN PRN Reason: Fever >101.5 Stop: 12/16/24 04:46 Enoxaparin Sodium (Enoxaparin Sod Inj 40 Mg/0.4 Ml Syringe) 40 mg SC QDAY GIANNA Stop: 11/30/24 08:59 Sodium Chloride (Ns) 1,000 mls @ 75 mls/hr IV .[id number] GIANNA Stop: 12/16/24 04:59 Last Admin: 11/16/24 05:12 Dose: 75 mls/hr Documented By: EF Ceftriaxone Sodium/Dextrose (Rocephin/D5w 1gm Iv Premix) 1 gm in 50 mls @ 100 mls/hr IV QDAY GIANNA Stop: 11/24/24 08:59 Pharmacy Consult (Vancomycin Pharmacy To Dose 1 Each Each) 1 each IV QDAY GIANNA Stop: 12/16/24 08:59 Discontinued Medications Sodium Chloride (Ns) 1,986 mls @ 1,986 mls/hr 30 ml/kg infuse over 60 min (1986 ml) IV .Q1H ONE Stop: 11/16/24 00:12 Last Infusion: 11/16/24 01:00 Dose: Infused Documented By: Admin: 11/16/24 00:00 Dose: 1,986 mls/hr Documented By: EF Ceftriaxone Sodium/Dextrose (Rocephin/D5w 1gm Iv Premix) 1 gm in 50 mls @ 100 mls/hr IV X1 ONE Stop: 11/15/24 23:57 Last Infusion: 11/16/24 00:30 Dose: Infused Documented By: Admin: 11/16/24 00:00 Dose: 100 mls/hr Documented By: EF Vancomycin HCl 1,000 mg/ (Sodium Chloride) 250 mls @ 150 mls/hr IV X1 ONE Stop: 11/16/24 01:07 Last Infusion: 11/16/24 02:27 Dose: Infused Documented By: Admin: 11/16/24 00:46 Dose: 150 mls/hr Documented By: EF Acetaminophen (Ofirmev Inj) 1,000 mg in 100 mls @ 250 mls/hr IV Q6HR GIANNA Stop: 11/17/24 00:23 Last Infusion: 11/16/24 04:40 Dose: Infused Documented By: Admin: 11/16/24 04:16 Dose: 250 mls/hr Documented By: EF Lactulose (Lactulose Syrup 20 Gm/30 Ml Udc) 20 gm GT X1 ONE; Protocol Stop: 11/15/24 23:27 Last Admin: 11/16/24 00:01 Dose: 20 gm Documented By: EF as above, if any Consultations Consultation(s) initiated? (list below): Yes Consultation #1 (Physician, Specialty, Details): Hospitalist made aware of the patient?s HPI, PMHx, lab and/or radiology results. Discussed treatment plan. Accepts patient for admission. Time: 04:30 Diagnosis Differential Diagnosis ED Complaint MDM: Contact dermatitis, cellulitis, bacterial skin infection Most likely diagnosis given after review of the tests above:: Facial cellulitis Admission Indicated Admission indicated?: indicated Explain why admission is indicated or not indicated:: abnormal studies Admission Request Was there a request for admission?: Yes Admission Attestation Admission request attestation: Discussed case with [] from Hospitalist service regarding admission. Discussed patients ED course, exam findings, labs, and radiology results. The Hospitalist [agrees,declines] to accept the patient for admission. Disposition Plan Disposition Plan: Admit Medical Decision Making MDM Narrative MDM Narrative: Scribe Attestation: I, Rosalina Lino, am scribing for and in the presence of Dr. Kearney. Provider Notation: Although this document has been carefully reviewed, there may still be some phonetic and other typographical errors. These errors are purely grammatical due to imperfections in the software program and should not be construed in any way to compromise the substance of the patient's medical care during this visit. Differential Diagnosis Differential Diagnosis: Contact dermatitis, cellulitis, bacterial skin infection Medical Records Medical records reviewed: Yes I reviewed the patient's medical records. Lab Data Lab results reviewed: Yes I reviewed the patient's lab results. 11/15/24 23:46 11/15/24 23:46 Labs: Lab Results 11/15/24 11/15/24 Range/Units 04:30 23:46 WBC 17.6 H (3.6-11.0) Thou/mm3 RBC 4.77 (4.00-5.20) Miln/mm3 Hgb 13.7 (12.0-16.0) g/dL Hct 41.2 (36.0-46.0) % MCV 86 (80-100) fL MCH 28.7 (25.0-35.0) pg MCHC 33.3 (31.0-37.0) g/dl RDW Std Deviation 42.5 (36.4-46.3) fL Plt Count 308 (140-440) Thou/mm3 Neut % (Auto) 72 (37-80) % Lymph % (Auto) 19 (10-50) % [place] % (Auto) 7 (0-12) % Eos % (Auto) 0 (0-10) % Baso % (Auto) 0 (0-2.5) % Neut # (Auto) 12.7 H (1.8-7.7) Thou/mm3 Lymph # (Auto) 3.4 (1.0-4.8) Thou/mm3 [place] # (Auto) 1.3 H (0.0-0.8) Thou/mm3 Eos # (Auto) 0.1 (0.0-0.5) Thou/mm3 Baso # (Auto) 0.1 (0.0-0.2) Thou/mm3 Immature Gran # (Auto) 0.09 H (0.00-0.00) Thou/mm3 Absolute Nucleated RBC 0.00 (0.00-0.00) Thou/mm3 Immature Gran % 1 H (0-0) % Nucleated RBC % 0 (0) /100 WBC PT 11.5 (9.0-12.2) Seconds INR 1.1 (0.9-1.3) APTT 30.7 (22.0-36.0) Seconds Sodium 138 (136-145) mMol/L Potassium 3.9 (3.4-5.1) mMol/L Chloride 107 (98-107) mMol/L Carbon Dioxide 19.9 L (20.0-31.0) mMol/L Anion Gap 11 (7-16) BUN 8 L (9-23) mg/dL Creatinine 0.7 (0.6-1.3) mg/dL Estim Creat Clear Calc 103.0 (>60) mL/min eGFR > 60 (60 - ) See Note BUN/Creatinine Ratio 11 L (12-20) Ratio Glucose 135 H (74-106) mg/dL Calculated Osmolality 275 (275-295) Lactic Acid 1.1 (0.4-2.0) mMol/L Calcium 9.0 (8.3-10.6) mg/dL Corrected Calcium 9.0 (8.5-10.1) mg/dL Phosphorus 3.0 (2.4-5.1) mg/dL Magnesium 1.8 (1.6-2.6) mg/dL Total Bilirubin 1.1 (0.3-1.2) mg/dL AST 40 H (0-34) U/L ALT 23 (10-49) U/L Alkaline Phosphatase 162 H (46-116) U/L Lactate Dehydrogenase 205 (120-246) U/L Troponin I < 0.002 (0.0-0.045) ng/mL B-Natriuretic Peptide 24 (0-100) pg/mL Total Protein 8.4 H (5.7-8.2) gm/dL Albumin 4.5 (3.4-4.8) gm/dL Globulin 3.9 H (2.3-3.5) gm/dL Albumin/Globulin Ratio 1.2 (1.2-2.2) Lipase 32 (12-53) U/L Procalcitonin 0.08 (0.0-0.49) ng/ml Ur Collection Type Clean Catch Urine Color Lt-Yellow (Lt Yel-Yel) Urine Clarity Clear (Clear/Hazy) Urine pH 5.0 (5.0-7.0) Ur Specific [place] 1.033 (1.001-1.035) Urine Protein Negative (Neg - Trace) Urine Glucose (UA) Negative (Negative) Urine Ketones Negative (Negative) Urine Blood Negative (Negative) Urine Nitrite Positive (Negative) Urine Bilirubin Negative (Negative) Urine Urobilinogen (Auto) Negative (0.0-1.0) mg/dL Ur Leukocyte Esterase Negative (Negative) Urine RBC 0 (0-3) /hpf Urine WBC 1 (0-5) /hpf Ur Squamous Epith Cells 0 (0-5) /hpf Urine Bacteria 3+ A (None) Radiology Data Radiology results reviewed: Yes I reviewed the patient's radiology results. Critical Care Time Critical Care Time Critical Care Time: Yes Total Critical Care Time (min.): 35 Attestation: The high probability of sudden, clinically significant deterioration in the patient?s condition required the highest level of my preparedness to intervene urgently. ? The services I provided to this patient were to treat and/or prevent clinically significant deterioration. Services included the following: chart data review, reviewing nursing notes and/or old charts, documentation time, talent development consultant collaboration regarding findings and treatment options, medication orders and management, direct patient care, vital sign assessments and ordering, interpreting and reviewing diagnostic studies and lab tests. ? Aggregate critical care time includes only time during which I was engaged in work directly related to the patient?s care, as described above, whether at bedside or elsewhere in the Emergency Department. It did not include time spent performing other reported procedures or the services of residents, students, nurses or physician assistants. Discharge Plan Plan Patient Disposition: Admit Acute Care w/in Hospital Patient condition on transfer: Stable Problem List Clinical Impression: Cellulitis of face, Sepsis
[2024-11-15 23:30] VITALS: PULSE 123; RESP 24; RESP 97
--- NOTE | 2024-11-15 23:49 | XR_ITS ---
Examination: AP chest single view Technique one AP portable semiupright chest single view Exam date and time: November 15, 2024 at 11:58 PM Comparison May 29, 2024 INDICATION: Sepsis protocol. FINDINGS: Early bibasilar pneumonia Normal heart size Moderate osteopenia with old deformity of the clavicles IMPRESSION: Early bibasilar pneumonia
[2024-11-15 23:57] LABS: Lactate (Lactic Acid) 1.1 mMol/L (0.4-2.0)
[2024-11-16] VITALS (10 sets, daily range): BP systolic 93–137; BP diastolic 48–103; PULSE 71–128; RESP 15–99; TEMP 36.2–38.2; O2SAT 93–100; BMI 34.0
[2024-11-16] MEDS: cefTRIAXone/D5w 1gm IV premix 1 GM/50 ML BAG IV
[2024-11-16] MEDS: LACTULOSE SYRUP 20 GM/30 ML UDC GT (00:01)
[2024-11-16 00:33] LABS: INR 1.1 (0.9-1.3); Partial Thromboplastin Time 30.7 Seconds (22.0-36.0); Prothrombin Time 11.5 Seconds (9.0-12.2)
[2024-11-16 00:34] LABS: Basophils # (Auto) 0.1 Thou/mm3 (0.0-0.2); Basophils % (Auto) 0 % (0-2.5); Eosinophils # (Auto) 0.1 Thou/mm3 (0.0-0.5); Eosinophils % (Auto) 0 % (0-10); Hematocrit 41.2 % (36.0-46.0); Hemoglobin 13.7 g/dL (12.0-16.0); Immature Granulocytes % (Auto) 1 % (0-0); Immature Granulocytes Auto 0.09 Thou/mm3 (0.00-0.00); Lymphocytes # (Auto) 3.4 Thou/mm3 (1.0-4.8); Lymphocytes % (Auto) 19 % (10-50); Mean Corpuscular HGB Conc 33.3 g/dl (31.0-37.0); Mean Corpuscular Hemoglobin 28.7 pg (25.0-35.0); Mean Corpuscular Volume 86 fL (80-100); Monocytes # (Auto) 1.3 Thou/mm3 (0.0-0.8); Monocytes % (Auto) 7 % (0-12); Neutrophils # (Auto) 12.7 Thou/mm3 (1.8-7.7); Neutrophils % (Auto) 72 % (37-80); Nucleated Red Blood Cell % 0 /100 WBC (0); Platelet Count 308 Thou/mm3 (140-440); RDW Standard Deviation 42.5 fL (36.4-46.3); Red Blood Count 4.77 Miln/mm3 (4.00-5.20); White Blood Count 17.6 Thou/mm3 (3.6-11.0)
[2024-11-16 00:40] LABS: B-Type Natriuretic Peptide 24 pg/mL (0-100)
[2024-11-16 00:44] LABS: Alanine Aminotransferase 23 U/L (10-49); Albumin, Serum 4.5 gm/dL (3.4-4.8); Albumin/Globulin Ratio 1.2 (1.2-2.2); Alkaline Phosphatase 162 U/L (46-116); Anion Gap 11 (7-16); Aspartate Amino Transferase 40 U/L (0-34); BUN/Creatinine Ratio 11 Ratio (12-20); Bilirubin,Total 1.1 mg/dL (0.3-1.2); Blood Urea Nitrogen 8 mg/dL (9-23); Carbon Dioxide 19.9 mMol/L (20.0-31.0); Chloride 107 mMol/L (98-107); Creatinine (Component) 0.7 mg/dL (0.6-1.3); Globulin 3.9 gm/dL (2.3-3.5); Glucose 135 mg/dL (74-106); LDH (Lactate Dehydrogenase) 205 U/L (120-246); Lipase 32 U/L (12-53); Magnesium 1.8 mg/dL (1.6-2.6); Osmolality,Calculated 275 (275-295); Potassium 3.9 mMol/L (3.4-5.1); Procalcitonin 0.08 ng/ml (0.0-0.49); Sodium 138 mMol/L (136-145); Total Protein 8.4 gm/dL (5.7-8.2); Troponin I < 0.002 ng/mL (0.0-0.045); eGFR > 60 See Note
[2024-11-16] MEDS: Vancomycin Inj 1,000 MG in SODIUM CHLORIDE 0.9% 250 ML 250 ML 150 MG IV (00:46)
--- NOTE | 2024-11-16 01:36 | XR_ITS ---
Examination: CT soft tissue neck, with intravenous contrast. 2-D coronal reconstructions. 2-D sagittal reconstructions. Date and time of exam :November 16, 2024 0250 hours INDICATIONS: Redness swelling and pain involving the face and neck today. CTDI: vol (mGy):10.2 DLP: (mGycm):232 Technique: 1.25 mm axial sections of the neck of the obtained. Coronal and sagittal reconstructions have been obtained. Intravenous contrast administered 60 cc Isovue-370. Low dose protocols were performed. One or more of the following dose reduction techniques were used; automated exposure control, adjustment of the mA and/or KV according to patient size, use of iterative reconstruction technique. Findings: No focal soft tissue abscess Symmetrical nasopharynx oropharynx No pathologic cervical lymphadenopathy. The larynx appears normal Normal epiglottis Opacity at the left apex IMPRESSION: Mild cellulitis pattern left facial region, no soft tissue abscess Recommend PA lateral chest to visualized the left apex
[2024-11-16] MEDS: ACETAMINOPHEN IVPB 1,000 MG/100 ML VIAL 250 MG IV (04:16)
--- NOTE | 2024-11-16 04:21 | PRELIM_ITS ---
CT scan of the neck with intravenous contrast (axial sections with sagittal and coronal reformats) November 16, 2024 at 0250 hours Clinical History: 64 yo old with cellulitis face, chin, cheek, left. Comparison: None. Findings: The nasopharynx, oropharynx, hypopharynx, supraglottic and infraglottic larynx, vocal cords and upper trachea are unremarkable. The epiglottis and aryepiglottic folds appear unremarkable. No enhancing lesion or fluid collection is identified. The vessels of the neck are well opacified. No filling defect is seen. The superficial soft tissues of the neck are unremarkable. Mild subcutaneous facial fat edema. Partially imaged consolidation in the left upper lung. Impression: 1. Mild subcutaneous facial fat edema, compatible with cellulitis. 2. No collections. 3. Partially imaged consolidation in the left upper lung. Correlation with imaging of the chest is recommended. Report Electronically Signed By: Pascual Dubon 11/16/2024 4:20:43 AM [EST]
[2024-11-16 04:32] LABS: Collection Type, Urine Clean Catch; RBC,Urine 0 /hpf (0-3); Squamous Epithelial Cell,Urine 0 /hpf (0-5)
--- NOTE | 2024-11-16 04:42 | EVENTNT_ITS ---
Documentation for date of: 11/16/24 Event Note Event Note: A 64-year-old female presented to the ER for evaluation of redness to the face and neck area. The patient has had redness to the left side of the face for 7 days, per family report. Today, the family noted new drainage from the left jain and left nasal area. The redness began on the left cheek and has since extended to the left neck. The presence of fever was initially unknown. custodial facility staff reported that the patient is currently on Clindamycin, with two doses administered, the most recent given at 0900 today. The patient has a history of CVA with right hemiparesis, s/p PEG tube placement, migraine headaches, depression, and recurrent episodes of SBO. Surgical history includes left knee surgery and PEG tube placement. Social history includes cessation of smoking and alcohol use 4 years ago; she had a 60 pack-year smoking history and denies illicit drug use. In the ER, vital signs recorded as temp 102.3 F, HR 123, RR 22, BP 106/81 mmHg. Lab revealed WBC 17.6, Hb 13.7, Plt 308, Na 138, K 3.9, CO2 19.9 L, BUN 8, Cr 0.7, glucose 135, lactic acid 1.1, and procalcitonin 0.08. CT demonstrated mild subcutaneous facial fat edema compatible with cellulitis; no collections were seen. Sepsis alert was called. Patient is going to be admitted for further management. Facial Cellulitis #Assessment: - Left facial erythema with extension to neck, new purulent drainage from left jain/nasal area. - Febrile (T 102.3?F), tachycardic (HR 123), tachypneic (RR 22), hypotensive (BP 106/81). - WBC 17.6. - CT: Subcutaneous fat edema, no abscess. - On Clindamycin x2 doses. - SIRS criteria met: Temp >38?C, HR >90, RR >20, WBC >12. - Procalcitonin not significantly elevated (0.08), Lactic acid normal (1.1). #Plan: - Continue IV antibiotic therapy: Vancomycin + Ceftriaxone, pending culture results. - Monitor for clinical progression; reassess need for imaging if worsening. - Consider ID consultation. - Ensure PEG tube nutrition/hydration support maintained.
--- NOTE | 2024-11-16 04:48 | PD.RESHP ---
Documentation for date of: 11/16/24 HPI History of Present Illness History of present illness: HPI is limited as patient is almost nonverbal at baseline and HPI is conducted with sister present at bedside Stella is a 64 y/o female with PMHx CVA right hemiparesis, s/p PEG tube placement, migraine headaches, depression, recurrent SBO who comes in for an evaluation of worsening and painful left-sided facial redness starting from under the eyelid extending down to mandible and part of throat, onset Wednesday. Patient sister reports that she visits her sister almost every day and had noticed that her sister had started to complain of redness under her eye had started with something that looked like a pimple. She reports no repeat trauma to the area or open wound. She states that the patient lives in a [facility] and has no recent travel. She did report that over the next couple of days they requested for an x-ray in which it was done and had not showed anything. Patient sister also contacted some of her doctors and she did not have much workup after that. Patient's sister then decided that the patient needs to come to the ED for evaluation as the patient began to complain of fever, chills and furthering pain in her face and neck. She denies hearing loss, shortness of breath, vomiting and headache. Patient has not been to the dentist recently. No other complaints at this time ED course: Patient came to the ED with a temperature of 98.4, heart rate 115, respiratory 17, blood pressure 115/75, saturating 97% on room air. Patient's temperature went up to 102.3. She was worked up was found to have sodium of 138,potassium of 3.9, BUN/creatinine was 8 and 0.7 respectively, glucose 135, white count 17.6, hemoglobin 13.7, magnesium 1.8, phosphorus 3.0, AST ALT 40 and 23 respectively, troponin negative x 1, Pro-Eleno negative x 1, lactate 1.1, urine pending. Soft tissue neck CT was done that showed mild subcutaneous fat edema consistent with cellulitis. Patient was given 2 L NS bolus, Rocephin x 1, lactulose 20 mg GT, vancomycin x 1, Tylenol 1 g. Medicine was consulted and patient was made to floors PMHx: As above Surgeries: PEG placement 4 years ago Meds:Pending Med rec, however, Lipitor, amitriptyline along trach, gabapentin, and number of, laxatives and enemas, DuoNeb as needed, lactulose, Linzess, Jevity Allergies: Channing, NSAIDs, Compazine, Toradol, milk, paroxetine, codeine, morphine, Bactrim Family Hx: Family history limited at this time Social Hx: Lives in [facility]. Used to work as a state senior cost accountant. Had a stroke 4 years ago and became bedbound afterwards and got PEG after that however eats occasionally. Has extensive smoking, drug and alcohol history. Review of Systems Review of Systems Narrative Review of Systems: Constitutional: + fever, + chills, fatigue, weakness, weight loss HEENT: No eye pain, vision loss, ear pain, hearing loss, dysphagia, + neck pain, +facial redness Cardiovascular: No chest pain, palpitations, edema, pain with walking Respiratory: No cough, shortness of breath, wheezing GI: No NVD, abdominal pain, constipation, blood in stool, loss of appetite, heartburn Extremities: No presence of pitting edema MSK: No back pain, joint pain, joint swelling Neuro: No dizziness, numbness, weakness, headaches, seizures, tremors Psych: No anxiety, depression Exam Vital Signs Temp Pulse Resp BP Pulse Ox O2 Del Method 100.6 F H 128 H 18 133/81 H 95 Room Air 11/16/24 03:57 11/16/24 03:57 11/16/24 03:57 11/16/24 03:57 11/16/24 03:57 11/16/24 03:57 Narrative Exam General: AAOx3, appears to be in mild distress, looks older than she is, obese, nonverbal at baseline, wears glasses HEENT: Dry mucous membranes, conjunctiva clear, EOMI, PERRLA, erythema located inferior to L eyelid extending to L side of neck and mandible and chin, slightly warm to touch, slightly TTP Cardiovascular: Murmur heard over DORIS, radial pulses +2 bilat, RRR Pulmonary: CTAB bilat no cough, no wheezing GI: G-tube present, abd soft, non tender to palpitation, no distension Extremities: No presence of trace or pitting edema in lower extremities bilaterally, dorsalis pedis pulses +2 bilaterally Neuro: AAOx3, Bed bound, R sided hemiplegia, able to response with head nods, responds and reacts to pain Psych: Able to cooperate Results: Labs 11/16/24 06:14 11/16/24 06:14 Labs: Short CBC 11/15/24 Range/Units 23:46 WBC 17.6 H (3.6-11.0) Thou/mm3 Hgb 13.7 (12.0-16.0) g/dL Hct 41.2 (36.0-46.0) % Plt Count 308 (140-440) Thou/mm3 BMP 11/15/24 23:46 Sodium 138 Potassium 3.9 Chloride 107 Carbon Dioxide 19.9 L BUN 8 L Creatinine 0.7 Glucose 135 H Calcium 9.0 Cardiac Enzymes 11/15/24 Range/Units 23:46 Troponin I < 0.002 (0.0-0.045) ng/mL Liver Function 11/15/24 Range/Units 23:46 Total Bilirubin 1.1 (0.3-1.2) mg/dL AST 40 H (0-34) U/L ALT 23 (10-49) U/L Alkaline Phosphatase 162 H (46-116) U/L Albumin 4.5 (3.4-4.8) gm/dL Quality Measures Quality Measures sepsis Current suspected stage: sepsis Possible source: skin/soft tissue Blood cultures ordered: yes Antibiotic ordered: Yes Advance care planning discussed with:: patient Medications Home Medications and Allergies Home Medications ?Medication ?Instructions ?Recorded ?Confirmed ?Type atorvastatin 40 mg tablet 40 mg feeding tube HS 07/31/21 09/06/24 History hyperlipidemia bisacodyl 10 mg rectal suppository 10 mg [place] Q72H PRN Constipation 11/17/21 09/06/24 History (Dulcolax (bisacodyl)) amitriptyline 50 mg tablet 25 mg PO HS Depression 09/18/22 09/06/24 History magnesium hydroxide 400 mg/5 mL 30 ml PO Q72H PRN Constipation 04/07/23 09/06/24 History oral suspension (Milk of Magnesia) ondansetron HCl 8 mg tablet 8 mg PO Q6HR PRN Nausea/Vomiting 04/07/23 09/06/24 History alendronate 70 mg tablet 70 mg PO QWEEK Osteoporosis 01/12/24 09/06/24 History lactose-reduced food with fiber See Rx Instructions .Route .COMPLEX 01/12/24 05/28/24 History 0.06 gram-1.2 kcal/mL oral liquid (Jevity 1.2 Eleno) linaclotide 145 mcg capsule 145 mcg PO QDAY constipation 01/12/24 09/06/24 History (Linzess) potassium chloride 20 mEq 20 meq BID 01/12/24 09/06/24 History tablet,extended release(part/cryst) acetaminophen 325 mg tablet 650 mg PO Q12HR PRN Mild Pain (1-3) 05/28/24 09/06/24 History (Tylenol) docusate sodium 100 mg tablet 100 mg PO BID Constipation 05/28/24 09/06/24 History lactulose 10 gram/15 mL oral 30 ml feeding tube BID 05/28/24 09/06/24 History solution (Enulose) sodium phosphates 19 gram-7 118 ml MN QDAY PRN Constipation 05/28/24 09/06/24 History gram/118 mL enema (Fleet Enema) gabapentin 300 mg capsule 300 mg PO Q8HR NEUROPATHY 09/06/24 09/06/24 History ipratropium 0.5 mg-albuterol 3 mg 3 ml inhalation QID 09/06/24 09/06/24 History (2.5 mg base)/3 mL nebulization soln Allergies Allergy/AdvReac Type Severity Reaction Status Date / Time hydrocodone (From Channing) Allergy Severe Anxiety Verified 01/11/24 19:58 NSAIDS (Non-Steroidal Allergy Severe UNKNOWN Verified 01/11/24 19:58 Anti-Inflamma prochlorperazine Allergy Severe UNKNOWN Verified 01/11/24 19:58 ketorolac Allergy Intermediate UNKNOWN Verified 01/11/24 19:58 milk Allergy Intermediate VOMITING Verified 01/11/24 19:58 paroxetine Allergy Intermediate VOMITING Verified 07/31/21 15:10 codeine Allergy Mild ITCHING Verified 01/11/24 19:58 morphine Allergy Mild Swelling Verified 01/11/24 19:58 sulfamethoxazole Allergy Unknown Verified 01/11/24 19:58 trimethoprim Allergy Unknown Verified 01/11/24 19:58 Visit Medications Acetaminophen (Ofirmev Inj) 1,000 mg in 100 mls @ 250 mls/hr IV Q6HR GIANNA Stop: 11/17/24 00:23 Last Admin: 11/16/24 04:16 Dose: 250 mls/hr Discontinued Medications Sodium Chloride (Ns) 1,986 mls @ 1,986 mls/hr 30 ml/kg infuse over 60 min (1986 ml) IV .Q1H ONE Stop: 11/16/24 00:12 Last Infusion: 11/16/24 01:00 Dose: Infused Ceftriaxone Sodium/Dextrose (Rocephin/D5w 1gm Iv Premix) 1 gm in 50 mls @ 100 mls/hr IV X1 ONE Stop: 11/15/24 23:57 Last Infusion: 11/16/24 00:30 Dose: Infused Vancomycin HCl 1,000 mg/ (Sodium Chloride) 250 mls @ 150 mls/hr IV X1 ONE Stop: 11/16/24 01:07 Last Infusion: 11/16/24 02:27 Dose: Infused Lactulose (Lactulose Syrup 20 Gm/30 Ml Udc) 20 gm GT X1 ONE; Protocol Stop: 11/15/24 23:27 Last Admin: 11/16/24 00:01 Dose: 20 gm Assessment & Plan Plan Assessment Stella is a 64 y/o female with PMHx CVA right hemiparesis, s/p PEG tube placement, migraine headaches, depression, recurrent SBO who is admitted for sepsis 2/2 to facial cellulitis. #Sepsis secondary to #Facial cellulitis Tachycardic, white count 17, tachypneic and fever 102.3 Lactate 1.1; Pro-Eleno negative qSOFA: 2 points Sepsis due to 4/4 SIRS criteria Sepsis bolus: 2L Left facial erythema with extension to neck, new purulent drainage from left spiritism/nasal area. CT soft tissue neck: Subcutaneous fat edema, no abscess. Pt has been MRSA positive numerous times in the past Plan: ? Vancomycin pharmacy to dose ? Rocephin 1g IV qday ? Consider ID consult ? F/u MRSA screen ? Follow-up urine cultures ? Follow-up blood cultures #G-tube dependent #Hx of recurrent SBO 4 years after CVA Plan: ? Resume tube feeds pending RD recommendations #Hx of CVA with residual R sided motor deficit #Bedbound #Hyperlipidemia Chronic Unsure if pt takes aspirin everyday Plan: ? Pending Med rec ? Resumed home Lipitor 40 mg at bedtime ? F/u Lipid panel #Hx of depression #Hx of Migraines Chronic Plan: ? Resumed home gabapentin 300 mg q8h ? Resumed home amitriptyline 25 mg HS #Health Maintenance Disposition: MedSurg DVT prophylaxis: Lovenox GI prophylaxis: None indicated at this time Diet: Pending RD recommendations CODE STATUS: Full Patient seen and care discussed with my attending physician, Dr. Gregory Ogden, PGY-1 Attending Provider Attestation/Addendum Pt was evaluated and plan formulated together with the housestaff team. I have reviewed the residents note above and agree with most of its content. Please refer to the residents note for additional details.
[2024-11-16 04:51] LABS: Bacteria,Urine 3+; Bilirubin,Urine Negative (Negative); Blood,Urine Negative (Negative); Clarity,Urine Clear (Clear/Hazy); Color,Urine Lt-Yellow (Lt Yel-Yel); Glucose, Urine Negative (Negative); Ketones,Urine Negative (Negative); Leukocyte Esterase,Urine Negative (Negative); Nitrite,Urine Positive (Negative); Protein,Urine Negative (Neg - Trace); Specific Gravity,Urine 1.033 (1.001-1.035); Urobilinogen,Urine Negative mg/dL (0.0-1.0); WBC,Urine 1 /hpf (0-5)
[2024-11-16] MEDS: SODIUM CHLORIDE 0.9% 1000 ML 1,000 ML 75 ML IV ×2 (05:12→20:11)
[2024-11-16 06:37] LABS: Anion Gap 9 (7-16); BUN/Creatinine Ratio 12 Ratio (12-20); Blood Urea Nitrogen 7 mg/dL (9-23); Calcium 8.1 mg/dL (8.3-10.6); Carbon Dioxide 18.9 mMol/L (20.0-31.0); Chloride 111 mMol/L (98-107); Creatinine (Component) 0.6 mg/dL (0.6-1.3); Estimated Creatinine Clearance 120.2 mL/min (>60); Glucose 128 mg/dL (74-106); Osmolality,Calculated 277 (275-295); Potassium 3.4 mMol/L (3.4-5.1); Sodium 139 mMol/L (136-145); eGFR > 60 See Note
[2024-11-16 06:45] LABS: Basophils % (Auto) 0 % (0-2.5); Eosinophils % (Auto) 0 % (0-10); Hematocrit 33.6 % (36.0-46.0); Hemoglobin 11.2 g/dL (12.0-16.0); Immature Granulocytes % (Auto) 1 % (0-0); Immature Granulocytes Auto 0.19 Thou/mm3 (0.00-0.00); Lymphocytes # (Auto) 1.5 Thou/mm3 (1.0-4.8); Lymphocytes % (Auto) 9 % (10-50); Mean Corpuscular HGB Conc 33.3 g/dl (31.0-37.0); Mean Corpuscular Hemoglobin 29.2 pg (25.0-35.0); Mean Corpuscular Volume 88 fL (80-100); Monocytes # (Auto) 1.3 Thou/mm3 (0.0-0.8); Monocytes % (Auto) 8 % (0-12); Neutrophils # (Auto) 13.1 Thou/mm3 (1.8-7.7); Neutrophils % (Auto) 81 % (37-80); Nucleated Red Blood Cell % 0 /100 WBC (0); Platelet Count 236 Thou/mm3 (140-440); RDW Standard Deviation 42.9 fL (36.4-46.3); Red Blood Count 3.83 Miln/mm3 (4.00-5.20); White Blood Count 16.1 Thou/mm3 (3.6-11.0)
[2024-11-16] MEDS: VANCOMYCIN/NS 1 GM IVPB 200 ML IV ×3 (07:42→23:25)
[2024-11-16] MEDS: GABAPENTIN 300 MG CAPSULE GT ×3 (07:42→22:07)
[2024-11-16] MEDS: ENOXAPARIN SOD INJ 40 MG/0.4 ML SYRINGE SC (08:33)
--- NOTE | 2024-11-16 09:37 | PD.IMCONS ---
HPI Data of Consult Requesting Physician: Wayne Hobbs MD Primary Care Provider: Physician No Primary/Family Consult Narrative Reason for consult: PEG tube evaluation History of present illness: 64 years old female I have been consulted for leakage around the PEG site she presented to the hospital with facial cellulitis currently on IV antibiotics She has a history of CVA residual aphasia and residual right-sided hemiplegia status post presumptive PEG tube recurrent small bowel obstruction and migraine headaches cc:: cc: Wayne Hobbs MD Review of Systems Review of Systems ROS Unobtainable: unobtainable due to medical condition Past Medical History Surgical History OTHER SURGICAL HX: As in the history of present illness Meds Home Medications and Allergies Home Medications ?Medication ?Instructions ?Recorded ?Confirmed ?Type atorvastatin 40 mg tablet 40 mg feeding tube HS 07/31/21 11/17/24 History hyperlipidemia bisacodyl 10 mg rectal suppository 10 mg [place] Q72H PRN Constipation 11/17/21 11/17/24 History (Dulcolax (bisacodyl)) amitriptyline 50 mg tablet 25 mg PO HS Depression 09/18/22 11/17/24 History magnesium hydroxide 400 mg/5 mL 30 ml PO Q72H PRN Constipation 04/07/23 11/17/24 History oral suspension (Milk of Magnesia) ondansetron HCl 8 mg tablet 8 mg PO Q6HR PRN Nausea/Vomiting 04/07/23 11/17/24 History alendronate 70 mg tablet 70 mg PO QWEEK Osteoporosis 01/12/24 11/17/24 History lactose-reduced food with fiber See Rx Instructions .Route .COMPLEX 01/12/24 05/28/24 History 0.06 gram-1.2 kcal/mL oral liquid (Jevity 1.2 Eleno) linaclotide 145 mcg capsule 145 mcg PO QDAY constipation 01/12/24 11/17/24 History (Linzess) potassium chloride 20 mEq 20 meq PO BID 01/12/24 11/17/24 History tablet,extended release(part/cryst) acetaminophen 325 mg tablet 650 mg PO Q12HR PRN Mild Pain (1-3) 05/28/24 11/17/24 History (Tylenol) docusate sodium 100 mg tablet 100 mg PO BID Constipation 05/28/24 11/17/24 History lactulose 10 gram/15 mL oral 30 ml feeding tube BID 05/28/24 11/17/24 History solution (Enulose) sodium phosphates 19 gram-7 118 ml [place] QDAY PRN Constipation 05/28/24 11/17/24 History gram/118 mL enema (Fleet Enema) gabapentin 300 mg capsule 300 mg PO Q8HR NEUROPATHY 09/06/24 11/17/24 History ipratropium 0.5 mg-albuterol 3 mg 3 ml inhalation QID 09/06/24 09/06/24 History (2.5 mg base)/3 mL nebulization soln Allergies Allergy/AdvReac Type Severity Reaction Status Date / Time hydrocodone (From Tenino) Allergy Severe Anxiety Verified 01/11/24 19:58 NSAIDS (Non-Steroidal Allergy Severe UNKNOWN Verified 01/11/24 19:58 Anti-Inflamma prochlorperazine Allergy Severe UNKNOWN Verified 01/11/24 19:58 ketorolac Allergy Intermediate UNKNOWN Verified 01/11/24 19:58 milk Allergy Intermediate VOMITING Verified 01/11/24 19:58 paroxetine Allergy Intermediate VOMITING Verified 07/31/21 15:10 codeine Allergy Mild ITCHING Verified 01/11/24 19:58 morphine Allergy Mild Swelling Verified 01/11/24 19:58 sulfamethoxazole Allergy Unknown Verified 01/11/24 19:58 trimethoprim Allergy Unknown Verified 01/11/24 19:58 Exam Vital Signs Temp Pulse Resp BP Pulse Ox O2 Del Method 98.7 F 95 20 101/68 99 Room Air 11/16/24 07:45 11/16/24 07:45 11/16/24 07:45 11/16/24 07:45 11/16/24 07:45 11/16/24 07:45 Constitutional Comments: Chronically ill-appearing Routine Abdominal Exam Comments: PEG site checked the PEG tube is working very well but there is a granular tissue formation around the PEG tube and some leakage which is not unusual as the stoma has gotten bigger than the tube Results Labs 11/17/24 06:08 11/17/24 06:08 Labs: Short CBC 11/15/24 11/16/24 Range/Units 23:46 06:14 WBC 17.6 H 16.1 H (3.6-11.0) Thou/mm3 Hgb 13.7 11.2 L D (12.0-16.0) g/dL Hct 41.2 33.6 L (36.0-46.0) % Plt Count 308 236 D (140-440) Thou/mm3 BMP 11/15/24 11/16/24 23:46 06:14 Sodium 138 139 Potassium 3.9 3.4 D Chloride 107 111 H Carbon Dioxide 19.9 L 18.9 L BUN 8 L 7 L Creatinine 0.7 0.6 Glucose 135 H 128 H Calcium 9.0 8.1 L Cardiac Enzymes 11/15/24 Range/Units 23:46 Troponin I < 0.002 (0.0-0.045) ng/mL Liver Function 11/15/24 Range/Units 23:46 Total Bilirubin 1.1 (0.3-1.2) mg/dL AST 40 H (0-34) U/L ALT 23 (10-49) U/L Alkaline Phosphatase 162 H (46-116) U/L Albumin 4.5 (3.4-4.8) gm/dL Urine 11/15/24 Range/Units 04:30 Urine Color Lt-Yellow (Lt Yel-Yel) Urine Clarity Clear (Clear/Hazy) Urine pH 5.0 (5.0-7.0) Ur Specific [place] 1.033 (1.001-1.035) Urine Protein Negative (Neg - Trace) Urine Glucose (UA) Negative (Negative) Assessment and Plan Additional Assessment & Plan Additional Plan: # PEG site drainage with perihepatic inflammatory changes due to the granulation tissue Clean the PEG site 3 times a day with Betadine I loosened up the stump so that it does not help the skin off and will monitor closely Other medical problems include Left CVA with residual right hemiparesis and aphasia Recurrent small bowel obstruction Migraine headaches Facial cellulitis Thank you for the opportunity to participate in the care of this patient
[2024-11-16] MEDS: AMPICILLIN/SULBAC INJ 3 GM in SODIUM CHLORIDE 0.9% (POP) 100 ML IV ×4 (10:10→23:25)
[2024-11-16] MEDS: Magnesium Sulfate 2 GM Ivpb 2 GM/50 ML BAG IV (10:10)
--- NOTE | 2024-11-16 16:38 | PC.DIETICIAN ---
Nutrition prescription When indicated, consider: Jevity 1.2 at 30 ml/hr via PEG tube by pump. Advance 10 ml every 8 hrs to goal rate of 60 ml/hr x 24 hrs. If no IV fluids, water flushes of 30 ml/hr (or per MD).
--- NOTE | 2024-11-16 17:48 | ESPR_ITS ---
<Statement entered by Shadi Bain MD - 11/16/24 18:35> Patient is admitted overnight due to facial cellulitis. She was additionally found with a PEG tube which appears to be infected as possible pseudogout. Blood pressure was soft however repeated 1 was improved. White count elevated at 16.1 and hemoglobin stable at 11.2. We switched the antibiotic from ceftriaxone to Unasyn and continuing vancomycin. Currently awaiting blood cultures and wound cultures. GI has been consulted to evaluate for possible replacement of PEG tube. Dietitian's recommendations are given. Electrolytes were repleted. Speech evaluation was ordered as patient was asking for food. All labs and orders were reviewed. I saw and examined the patient, and I agree with current management stated by Dr Efraín MD,PGY1. Plan of care was discussed with the attending physician and resident physician. Disclaimer: Despite multiple revisions, due to the dictation software being used, the document bellow may not be free of grammatical errors including phonetic/typographic errors. However, this does not deter from our commitment to providing health care in the patient's best interest in mind. Dr. Ruthy MD, PGY 2 Documentation for date of: 11/16/24 Subjective Subjective Interval history: Patient is an overnight admit patient is here for cellulitis on face, appears to be a scratching injury on the left lateral side of the nose bridge and along the jawline redness. Patient denies any pain in the area of the cellulitis, denies chest pain, denies abdominal pain. Patient is able to understand however she appears to have Broca's aphasia likely from history of CVA. Patient has a PEG tube which appears to be dislodged with greenish pus coming out therefore we will consult GI for PEG tube evaluation. Exam Vital Signs Temp Pulse Resp BP Pulse Ox O2 Del Method 97.1 F 111 H 20 137/103 H 93 L Room Air 11/16/24 16:00 11/16/24 16:48 11/16/24 16:48 11/16/24 16:00 11/16/24 16:48 11/16/24 16:00 Narrative Exam GENERAL: A&Ox3 . Awake, Not in acute distress NEURO: no focal neurological deficits HEENT: Atraumatic, Normocephalic. mucous membranes moist. Eyes open, symmetrical, & clear HEART: Normal Heart Sounds LUNGS: Clear to auscultation with no wheezing or crackles. ABDOMEN: soft, non-distended, non-tender, bowel sounds heard, no guarding or rebound tenderness SKIN: No Rash or ecchymoses, erythema and warm along the jaw line, and later side of the nose on left side EXTREMITIES: No edema, tenderness, able to move all 4 extremities, pedal pulses palpated Objective Labs 11/17/24 06:08 11/17/24 06:08 Labs: Laboratory Results - last 24 hr 11/15/24 11/15/24 11/16/24 04:30 23:46 06:14 WBC 17.6 H 16.1 H RBC 4.77 3.83 L Hgb 13.7 11.2 L D Hct 41.2 33.6 L MCV 86 88 MCH 28.7 29.2 MCHC 33.3 33.3 RDW Std Deviation 42.5 42.9 Plt Count 308 236 D Neut % (Auto) 72 81 H Lymph % (Auto) 19 9 L [place] % (Auto) 7 8 Eos % (Auto) 0 0 Baso % (Auto) 0 0 Neut # (Auto) 12.7 H 13.1 H Lymph # (Auto) 3.4 1.5 [place] # (Auto) 1.3 H 1.3 H Eos # (Auto) 0.1 0.0 Baso # (Auto) 0.1 0.0 Immature Gran # (Auto) 0.09 H 0.19 H Absolute Nucleated RBC 0.00 0.00 Immature Gran % 1 H 1 H Nucleated RBC % 0 0 PT 11.5 INR 1.1 APTT 30.7 Sodium 138 139 Potassium 3.9 3.4 D Chloride 107 111 H Carbon Dioxide 19.9 L 18.9 L Anion Gap 11 9 BUN 8 L 7 L Creatinine 0.7 0.6 Estim Creat Clear Calc 103.0 120.2 eGFR > 60 > 60 BUN/Creatinine Ratio 11 L 12 Glucose 135 H 128 H Calculated Osmolality 275 277 Lactic Acid 1.1 Calcium 9.0 8.1 L Corrected Calcium 9.0 Phosphorus 3.0 Magnesium 1.8 Total Bilirubin 1.1 AST 40 H ALT 23 Alkaline Phosphatase 162 H Lactate Dehydrogenase 205 Troponin I < 0.002 B-Natriuretic Peptide 24 Total Protein 8.4 H Albumin 4.5 Globulin 3.9 H Albumin/Globulin Ratio 1.2 Lipase 32 Procalcitonin 0.08 Ur Collection Type Clean Catch Urine Color Lt-Yellow Urine Clarity Clear Urine pH 5.0 Ur Specific [place] 1.033 Urine Protein Negative Urine Glucose (UA) Negative Urine Ketones Negative Urine Blood Negative Urine Nitrite Positive Urine Bilirubin Negative Urine Urobilinogen (Auto) Negative Ur Leukocyte Esterase Negative Urine RBC 0 Urine WBC 1 Ur Squamous Epith Cells 0 Urine Bacteria 3+ A Quality Measures Quality Measures sepsis Current suspected stage: ruled out Possible source: skin/soft tissue Blood cultures ordered: yes Antibiotic ordered: Yes Advance care planning discussed with:: other Assessment & Plan Assessment Current Active Medications: Generic Name Dose Route Start Last Admin Trade Name Freq PRN Reason Stop Dose Admin Acetaminophen 650 mg 11/16/24 06:02 Acetaminophen 325 Mg Tablet PO 12/16/24 04:46 Q6H PRN Fever >101.5 Albuterol/Ipratropium 3 ml 11/16/24 06:02 Albuterol/Ipratropium (Duoneb) Rt Danelle 3 Ml Nebu INH 12/16/24 06:59 Q6HRRT PRN SHORTNESS OF BREATH Amitriptyline HCl 25 mg 11/16/24 21:00 Amitriptyline Hcl 25 Mg Tablet GT 12/16/24 20:59 HS GIANNA Atorvastatin Calcium 40 mg 11/16/24 21:00 Atorvastatin Calcium 20 Mg Tablet GT 12/16/24 20:59 HS GIANNA Enoxaparin Sodium 40 mg 11/16/24 09:00 11/16/24 08:33 Enoxaparin Sod Inj 40 Mg/0.4 Ml Syringe SC 11/30/24 08:59 40 mg QDAY GIANNA Administration Gabapentin 300 mg 11/16/24 06:15 11/16/24 13:27 Gabapentin 300 Mg Capsule GT 12/16/24 06:14 300 mg Q8HR GIANNA Administration Sodium Chloride 1,000 mls @ 75 mls/hr 11/16/24 05:00 11/16/24 05:12 Ns IV 12/16/24 04:59 75 mls/hr .[id number] GIANNA Administration Vancomycin/Sodium Chloride 200 mls @ 120 mls/hr 11/16/24 08:00 11/16/24 14:09 Vancomycin/Ns 1 Gm Ivpb IV 11/23/24 07:59 120 mls/hr Q8HR GIANNA Administration Protocol Ampicillin Sodium/Sulbactam 100 mls @ 200 mls/hr 11/16/24 10:00 11/16/24 14:05 Sodium 3 gm/ Sodium Chloride IV 11/23/24 09:59 Infused Q6HR GIANNA Infusion Lactulose 20 gm 11/16/24 06:00 Lactulose Syrup 20 Gm/30 Ml Udc GT 12/16/24 08:59 BID PRN constipation Protocol Pharmacy Consult 1 each 11/16/24 09:00 Vancomycin Pharmacy To Dose 1 Each Each IV 12/16/24 08:59 QDAY PRN CONSULT Plan Ms. Douglas is a 64 y/o female with PMHx CVA right hemiparesis, broca's aphagia, s/p PEG tube placement, migraine headaches, depression, recurrent SBO who is admitted for sepsis 2/2 to facial cellulitis. #Sepsis secondary to - ruled #Facial cellulitis -Tachycardic, white count 17, tachypneic and fever 102.3 -Lactate 1.1; Pro-Eleno negative -qSOFA: 2 points -Although Sepsis alert was initiated due to 4/4 SIRS criteria and 2L bolus is given, Since there is no evidence of end organ damage, will rule sepsis out -Left facial erythema with extension to neck, new purulent drainage from left mandaen/nasal area. -CT soft tissue neck: Subcutaneous fat edema, no abscess. -Pt has been MRSA positive numerous times during previous admission Plan: -Vancomycin pharmacy to dose -Rocephin 1g IV given on 11/16 -started unasyn - -MRSA, urine cultures and blood cultures pending #G-tube dependent #Hx of recurrent SBO -On chart reviewing, pt has multiple admissions for recurrent SBO -Pt has a chronic PEG tube, and sometimes tolerates oral diet Plan: - GI consulted for evaluation of the PEG tube -Will resume tube feeds after GI evaluation #Hx of CVA with residual R sided motor deficit #Broca's aphagia #Bedbound #Hyperlipidemia -Pt has hx of CVA with residual righ hemiparesis. Pt is able to understand but does not have clear speech. -Unable to confirm if Pt is compliant with her medicaitons Plan: ? Pending Med rec ? Resumed home Lipitor 40 mg at bedtime #Hx of depression #Hx of Migraines ? Resumed home gabapentin 300 mg q8h ? Resumed home amitriptyline 25 mg HS #Health Maintenance Disposition: MedSurg DVT prophylaxis: Lovenox GI prophylaxis: None indicated at this time Diet: Pending RD recommendations CODE STATUS: Full Assessment and plan discussed with my senior resident Dr. Bain & attending physician Dr. Anjel Kenny (PGY-1)- Internal medicine resident Attending Provider Attestation/Addendum I reviewed labs, imaging, EKG, home medications and prior available records. Face to face evaluation was performed by me. I have personally examined the patient and discussed assessment and plan with the IM team. I reviewed the resident note and agree with the plan with exceptions as below. Left face cellulitis Leukocytosis History of CVA with Broca's aphasia Dysphagia status post PEG tube PEG tube malfunction Continue Unasyn and vancomycin Follow-up MRSA Follow-up cultures Trend WBC: Downtrending Consulted GI for PEG tube evaluation
--- NOTE | 2024-11-16 18:29 | PC.NURSE ---
notified Dr. Bain that pt's bld glucose is 64
[2024-11-16] MEDS: DEXTROSE 50%-WATER INJ 50 ML SYRINGE IV (18:39)
[2024-11-16] MEDS: AMITRIPTYLINE HCL 25 MG TABLET GT (20:10)
[2024-11-16] MEDS: ACETAMINOPHEN 325 MG TABLET 650 MG PO (20:10)
[2024-11-16] MEDS: ATORVASTATIN CALCIUM 20 MG TABLET 40 MG GT (20:10)
[2024-11-16] MEDS: DiphenhydrAMINE INJ 50 MG/ML VIAL 12.5 MG IV (22:07)
--- NOTE | 2024-11-16 23:47 | PC.NURSE ---
MD Roberts okayed to start tube feeding.
[2024-11-17] VITALS (8 sets, daily range): BP systolic 99–129; BP diastolic 54–84; PULSE 74–94; RESP 16–96; TEMP 36.1–36.7; O2SAT 91–98
[2024-11-17] MEDS: AMPICILLIN/SULBAC INJ 3 GM in SODIUM CHLORIDE 0.9% (POP) 100 ML IV ×3 (05:23→17:05)
[2024-11-17] MEDS: GABAPENTIN 300 MG CAPSULE GT ×3 (05:23→21:48)
[2024-11-17] MEDS: VANCOMYCIN/NS 1 GM IVPB 200 ML IV (05:23)
[2024-11-17] MEDS: ACETAMINOPHEN 325 MG TABLET 650 MG PO ×2 (05:32→17:13)
[2024-11-17 06:33] LABS: Basophils % (Auto) 0 % (0-2.5); Eosinophils # (Auto) 0.4 Thou/mm3 (0.0-0.5); Eosinophils % (Auto) 5 % (0-10); Hematocrit 32.8 % (36.0-46.0); Hemoglobin 10.9 g/dL (12.0-16.0); Immature Granulocytes % (Auto) 1 % (0-0); Immature Granulocytes Auto 0.07 Thou/mm3 (0.00-0.00); Lymphocytes # (Auto) 2.6 Thou/mm3 (1.0-4.8); Lymphocytes % (Auto) 30 % (10-50); Mean Corpuscular HGB Conc 33.2 g/dl (31.0-37.0); Mean Corpuscular Hemoglobin 28.8 pg (25.0-35.0); Mean Corpuscular Volume 87 fL (80-100); Monocytes # (Auto) 0.5 Thou/mm3 (0.0-0.8); Monocytes % (Auto) 6 % (0-12); Neutrophils # (Auto) 5.2 Thou/mm3 (1.8-7.7); Neutrophils % (Auto) 59 % (37-80); Nucleated Red Blood Cell % 0 /100 WBC (0); Platelet Count 183 Thou/mm3 (140-440); RDW Standard Deviation 43.2 fL (36.4-46.3); Red Blood Count 3.78 Miln/mm3 (4.00-5.20); White Blood Count 8.9 Thou/mm3 (3.6-11.0)
[2024-11-17 06:53] LABS: Glucose Estimated Average 114 mg/dL (80-131); Hemoglobin A1C 5.6 % Hgb (4.8-6.0)
[2024-11-17 07:06] LABS: Anion Gap 10 (7-16); BUN/Creatinine Ratio 10 Ratio (12-20); Blood Urea Nitrogen < 5 mg/dL (9-23); Calcium 7.9 mg/dL (8.3-10.6); Carbon Dioxide 20.7 mMol/L (20.0-31.0); Cardiac Risk Estimate 3.4 RATIO (3.7-5.6); Chloride 111 mMol/L (98-107); Cholesterol 67 mg/dL (132-200); Creatinine (Component) 0.5 mg/dL (0.6-1.3); Estimated Creatinine Clearance 141.8 mL/min (>60); Glucose 114 mg/dL (74-106); HDL Cholesterol 20 mg/dL (40-60); LDL Cholesterol,Calculated 26 mg/dL (0-130); Osmolality,Calculated 281 (275-295); Potassium 3.2 mMol/L (3.4-5.1); Sodium 142 mMol/L (136-145); Thyroid Stimulating Hormone 0.86 uIU/mL (0.55-4.78); Triglycerides 105 mg/dL (30-150); eGFR > 60 See Note
[2024-11-17] MEDS: POTASSIUM CHLORIDE 10% 20 MEQ/15 ML UDC 40 MEQ GT (09:14)
[2024-11-17] MEDS: ENOXAPARIN SOD INJ 40 MG/0.4 ML SYRINGE SC (09:14)
--- NOTE | 2024-11-17 12:00 | CHAP ---
Patient was visited by the Spiritual Care Volunteer who prayed for them. (Volunteer was in the hospital from 10:00-12:00)
[2024-11-17] MEDS: SODIUM CHLORIDE 0.9% 1000 ML 1,000 ML 75 ML IV (12:52)
--- NOTE | 2024-11-17 13:42 | PC.SS ---
Patient is a 64 year old admitted Cellulitis. SS contacted patient's sister Noreen Burgess she states she is surrogate decision maker and has power of pegger. She reports patient resides at [facility] and is not able to ambulate and needs assistance completing ADL's. Patient is alert and oriented. When patient is medically cleared she will be returning back to [facility]. Patient's daughter would like SS to contact her before discharge. Discharge Plan: Home Next of Kin: Sister, Noreen Burgess has POA- [phone]
--- NOTE | 2024-11-17 15:23 | PD.RESPRO ---
Documentation for date of: 11/17/24 Subjective Subjective Interval history: No acute overnight events reported. Patient is seen and examined at bedside this morning. Patient is saturating on room air, patient's PEG tube is pending evaluation for possible replacement. Pt requested oral diet, speech therapy evaluation is ordered and per speech therapy pt is able to safely swallow puree and thin liquids therefore dysphagia 1 pureed diet is ordered. Pts vitals are stable and labs are within normal limits with exception of hypokalemia and 40meq is repleted. Exam Vital Signs Temp Pulse Resp BP Pulse Ox O2 Del Method 97.4 F 80 19 99/74 92 L Room Air 11/17/24 12:00 11/17/24 12:00 11/17/24 12:00 11/17/24 12:00 11/17/24 12:00 11/17/24 12:00 Narrative Exam GENERAL: elderly female with broca's aphagia, communicates via writing on paper NEURO: right hemispheres HEENT: Atraumatic, Normocephalic. mucous membranes moist. Eyes open, symmetrical, & clear HEART: Normal Heart Sounds LUNGS: Clear to auscultation with no wheezing or crackles. ABDOMEN: soft, non-distended, non-tender, bowel sounds heard, no guarding or rebound tenderness, PEG tube is in place with greenish discharge around it SKIN: No Rash or ecchymoses, erythema and warm along the jaw line, and later side of the nose on left side (improved) EXTREMITIES: No edema, tenderness, pedal pulses palpated Objective Labs 11/18/24 04:43 11/18/24 04:43 Labs: Laboratory Results - last 24 hr 11/16/24 11/17/24 21:16 06:08 WBC 8.9 D RBC 3.78 L Hgb 10.9 L Hct 32.8 L MCV 87 MCH 28.8 MCHC 33.2 RDW Std Deviation 43.2 Plt Count 183 D Neut % (Auto) 59 Lymph % (Auto) 30 [place] % (Auto) 6 Eos % (Auto) 5 Baso % (Auto) 0 Neut # (Auto) 5.2 Lymph # (Auto) 2.6 [place] # (Auto) 0.5 Eos # (Auto) 0.4 Baso # (Auto) 0.0 Immature Gran # (Auto) 0.07 H Absolute Nucleated RBC 0.00 Immature Gran % 1 H Nucleated RBC % 0 Sodium 142 Potassium 3.2 L Chloride 111 H Carbon Dioxide 20.7 Anion Gap 10 BUN < 5 L Creatinine 0.5 L Estim Creat Clear Calc 141.8 eGFR > 60 BUN/Creatinine Ratio 10 L Glucose [address] Glu mg/dL 114 Hemoglobin A1c 5.6 Calculated Osmolality 281 Calcium 7.9 L Triglycerides 105 Cholesterol 67 L LDL Cholesterol, Calc 26 HDL Cholesterol 20 L Cholesterol/HDL Ratio 3.4 L TSH 0.86 Vancomycin Trough 17.0 H Quality Measures Quality Measures sepsis Current suspected stage: ruled out Possible source: skin/soft tissue Blood cultures ordered: yes Antibiotic ordered: Yes Advance care planning discussed with:: other Assessment & Plan Assessment Current Active Medications: Generic Name Dose Route Start Last Admin Trade Name Freq PRN Reason Stop Dose Admin Acetaminophen 650 mg 11/16/24 19:56 11/17/24 05:32 Acetaminophen 325 Mg Tablet PO 12/16/24 04:46 650 mg Q6H PRN Administration Fever >100 or pain 1-3 Albuterol/Ipratropium 3 ml 11/16/24 06:02 Albuterol/Ipratropium (Duoneb) Rt Danelle 3 Ml Nebu INH 12/16/24 06:59 Q6HRRT PRN SHORTNESS OF BREATH Amitriptyline HCl 25 mg 11/16/24 21:00 11/16/24 20:10 Amitriptyline Hcl 25 Mg Tablet GT 12/16/24 20:59 25 mg HS GIANNA Administration Atorvastatin Calcium 40 mg 11/16/24 21:00 11/16/24 20:10 Atorvastatin Calcium 20 Mg Tablet GT 12/16/24 20:59 40 mg HS GIANNA Administration Dextrose 25 ml 11/16/24 18:29 Dextrose 50%-Water Inj 50 Ml Syringe IV 12/16/24 18:28 Q15MIN PRN BG 50-70 responsive npo pt Dextrose 50 ml 11/16/24 18:29 Dextrose 50%-Water Inj 50 Ml Syringe IV 12/16/24 18:28 Q15MIN PRN BG <50 OR BG <70 & pt unresponsive Enoxaparin Sodium 40 mg 11/16/24 09:00 11/17/24 09:14 Enoxaparin Sod Inj 40 Mg/0.4 Ml Syringe SC 11/30/24 08:59 40 mg QDAY GIANNA Administration Gabapentin 300 mg 11/16/24 06:15 11/17/24 13:05 Gabapentin 300 Mg Capsule GT 12/16/24 06:14 300 mg Q8HR GIANNA Administration Glucagon 1 mg 11/16/24 18:29 Glucagon Inj 1 Mg Vial IM Q15MIN PRN BG <70, and no IV access Sodium Chloride 1,000 mls @ 75 mls/hr 11/16/24 05:00 11/17/24 12:52 Ns IV 12/16/24 04:59 75 mls/hr .[id number] GIANNA Administration Ampicillin Sodium/Sulbactam 100 mls @ 200 mls/hr 11/16/24 10:00 11/17/24 12:37 Sodium 3 gm/ Sodium Chloride IV 11/23/24 09:59 100 mls/hr Q6HR GIANNA Administration Lactulose 20 gm 11/16/24 06:00 Lactulose Syrup 20 Gm/30 Ml Udc GT 12/16/24 08:59 BID PRN constipation Protocol Plan Ms. Douglas is a 64 y/o female with PMHx CVA right hemiparesis, broca's aphagia, s/p PEG tube placement, migraine headaches, depression, recurrent SBO who is admitted for sepsis 2/2 to facial cellulitis. #Sepsis secondary to - ruled #Facial cellulitis -Tachycardic, white count 17, tachypneic and fever 102.3 -Lactate 1.1; Pro-Eleno negative -qSOFA: 2 points -Although Sepsis alert was initiated due to 4/4 SIRS criteria and 2L bolus is given, Since there is no evidence of end organ damage, will rule sepsis out -Left facial erythema with extension to neck, new purulent drainage from left episcopalian/nasal area. -CT soft tissue neck: Subcutaneous fat edema, no abscess. -Pt has been MRSA positive numerous times during previous admission Plan: -Vancomycin pharmacy to dose - D/c on 11/17 due to negative MRSA -Rocephin 1g IV given on 11/16 -started unasyn 11/16- -urine cultures pending -blood cultures no growth at 24 hrs -wound cultures pending #G-tube dependent #Hx of recurrent SBO -On chart reviewing, pt has multiple admissions for recurrent SBO -Pt has a chronic PEG tube, and sometimes tolerates oral diet Plan: -GI consulted for evaluation of the PEG tube -Tube feeds resumed -Oral diet ordered, dysphasia 1 pureed as per speech therapy evaluation #Hx of CVA with residual R sided motor deficit #Broca's aphagia #Bedbound #Hyperlipidemia -Pt has hx of CVA with residual righ hemiparesis. Pt is able to understand but does not have clear speech. -Unable to confirm if Pt is compliant with her medicaitons Plan: ? Pending Med rec ? Resumed home Lipitor 40 mg at bedtime #Hx of depression #Hx of Migraines ? Resumed home gabapentin 300 mg q8h ? Resumed home amitriptyline 25 mg HS #Health Maintenance Disposition: MedSurg DVT prophylaxis: Lovenox GI prophylaxis: None indicated at this time Diet: Pending RD recommendations CODE STATUS: Full Assessment and plan discussed with my attending physician Dr. Anjel Kenny (PGY-1)- Internal medicine resident Attending Provider Attestation/Addendum I reviewed labs, imaging, EKG, home medications and prior available records. Face to face evaluation was performed by me. I have personally examined the patient and discussed assessment and plan with the IM team. I reviewed the resident note and agree with the plan with exceptions as below. Left face cellulitis Leukocytosis History of CVA with Broca's aphasia Dysphagia status post PEG tube PEG tube malfunction Continue Unasyn and vancomycin Follow-up MRSA Follow-up cultures Trend WBC: Downtrending PEG tube is working again. Started Jevity. Patient was evaluated by speech therapy who is okay with pur?ed diet. Discussed with dietitian and pur?ed diet was started Consulted GI for PEG tube evaluation
--- NOTE | 2024-11-17 18:35 | PC.NURSE ---
BRANDON HERNANDEZ NOTIFIED ME PATIENTS PEG TUBE WAS ACCIDENTALY PULLED OUT WHILE HE WAS TURNING THE PATIENT. CHATMAN CATHETER TUBING PUT IN PLACE TO KEEP WHOLE OPEN. I NOTIFIED DR. RIVERA HE WAS GOING TO NOTIFY DR. YARBROUGH AND CALL ME BACK WITH ORDERS. WILL CONTINUE TO MONITOR PATIENT.
--- NOTE | 2024-11-17 19:49 | PD.IMPROG ---
Documentation for date of: 11/17/24 Subjective Subjective Interval history: Patient evaluated PEG tube accidentally pulled out during change of shift Castaneda catheter in place I will put a new PEG tube into the patient Exam Vital Signs Temp Pulse Resp BP Pulse Ox O2 Del Method 97.1 F 90 18 117/84 96 Room Air 11/17/24 15:58 11/17/24 19:10 11/17/24 19:10 11/17/24 15:58 11/17/24 19:10 11/17/24 15:58 Objective Labs 11/17/24 06:08 11/17/24 06:08 Labs: Laboratory Results - last 24 hr 11/16/24 11/17/24 21:16 06:08 WBC 8.9 D RBC 3.78 L Hgb 10.9 L Hct 32.8 L MCV 87 MCH 28.8 MCHC 33.2 RDW Std Deviation 43.2 Plt Count 183 D Neut % (Auto) 59 Lymph % (Auto) 30 [place] % (Auto) 6 Eos % (Auto) 5 Baso % (Auto) 0 Neut # (Auto) 5.2 Lymph # (Auto) 2.6 [place] # (Auto) 0.5 Eos # (Auto) 0.4 Baso # (Auto) 0.0 Immature Gran # (Auto) 0.07 H Absolute Nucleated RBC 0.00 Immature Gran % 1 H Nucleated RBC % 0 Sodium 142 Potassium 3.2 L Chloride 111 H Carbon Dioxide 20.7 Anion Gap 10 BUN < 5 L Creatinine 0.5 L Estim Creat Clear Calc 141.8 eGFR > 60 BUN/Creatinine Ratio 10 L Glucose [address] Glu mg/dL 114 Hemoglobin A1c 5.6 Calculated Osmolality 281 Calcium 7.9 L Triglycerides 105 Cholesterol 67 L LDL Cholesterol, Calc 26 HDL Cholesterol 20 L Cholesterol/HDL Ratio 3.4 L TSH 0.86 Vancomycin Trough 17.0 H Impressions Impression: # Accidentally PEG tube pulled out during changing of posture of the patient Plan will place a new PEG tube Consent obtained from the daughter Assessment & Plan A&P Narrative # PEG site drainage with perihepatic inflammatory changes due to the granulation tissue Clean the PEG site 3 times a day with Betadine I loosened up the stump so that it does not help the skin off and will monitor closely Other medical problems include Left CVA with residual right hemiparesis and aphasia Recurrent small bowel obstruction Migraine headaches Facial cellulitis Thank you for the opportunity to participate in the care of this patient Time Spent With Patient Time: Total time spent is greater than 50% in coordination of care (as documented) at patient's floor/unit and/or counseling patient:
[2024-11-17] MEDS: Calamine Lotion 120 ML BTL TOP (20:46)
[2024-11-17] MEDS: DiphenhydrAMINE INJ 50 MG/ML VIAL 12.5 MG IV (20:46)
[2024-11-17] MEDS: ATORVASTATIN CALCIUM 20 MG TABLET 40 MG GT (20:55)
[2024-11-17] MEDS: AMITRIPTYLINE HCL 25 MG TABLET GT (20:55)
--- NOTE | 2024-11-17 21:14 | PC.NURSE ---
Dr. Roberts at bedside and switched mobley cath from PEG site to new PEG tube. Assisted Dr. Roberts. Pt tolerated well.
--- NOTE | 2024-11-17 21:42 | PD.IMOPNOTE ---
Date of Procedure 11/17/24 Pre Op Diagnosis Malfunctioning PEG tube Post Op Diagnosis Removal of the existing PEG tube placement of a new Anguillan 20 MIKE gastrostomy tube Procedure Placement of a new Anguillan 20 MIKE gastrostomy tube Findings Anterior abdominal wall was cleaned in sterile fashion with Betadine Existing PEG tube was removed which was a Castaneda catheter Using the stoma Anguillan 20 MIKE gastrostomy tube was placed in position The balloon was inflated with 10 cc of sterile water and the tube secured in position Procedure Description As above Pathology / specimen None Pathology comment: No specimen taken Estimated Blood Loss 0 Surgeon Anahi Roberts MD Diagnosis Problem List Completed Was Problem List Reviewed/Reconciled?: Yes
--- NOTE | 2024-11-17 22:58 | PC.NURSE ---
ellie de la garza.
[2024-11-18] VITALS: BP 102/52; PULSE 89; RESP 16; TEMP 36.3; O2SAT 94
[2024-11-18] MEDS: SODIUM CHLORIDE 0.9% 1000 ML 1,000 ML 75 ML IV ×2 (00:35→12:31)
[2024-11-18] MEDS: AMPICILLIN/SULBAC INJ 3 GM in SODIUM CHLORIDE 0.9% (POP) 100 ML IV ×3 (00:36→12:32)
[2024-11-18] MEDS: Calamine Lotion 120 ML BTL TOP (03:17)
[2024-11-18] MEDS: ACETAMINOPHEN 325 MG TABLET 650 MG PO ×2 (03:17→09:50)
[2024-11-18 04:00] VITALS: BP 116/80; RESP 16; TEMP 36.4; O2SAT 97
[2024-11-18] MEDS: GABAPENTIN 300 MG CAPSULE GT ×2 (06:12→14:29)
[2024-11-18 06:28] LABS: Anion Gap 9 (7-16); BUN/Creatinine Ratio 10 Ratio (12-20); Blood Urea Nitrogen < 5 mg/dL (9-23); Calcium 7.6 mg/dL (8.3-10.6); Carbon Dioxide 21.8 mMol/L (20.0-31.0); Chloride 113 mMol/L (98-107); Creatinine (Component) 0.5 mg/dL (0.6-1.3); Estimated Creatinine Clearance 141.8 mL/min (>60); Glucose 103 mg/dL (74-106); Magnesium 1.6 mg/dL (1.6-2.6); Osmolality,Calculated 284 (275-295); Phosphorous 2.1 mg/dL (2.4-5.1); Potassium 3.6 mMol/L (3.4-5.1); Sodium 144 mMol/L (136-145); eGFR > 60 See Note
[2024-11-18 07:59] LABS: Basophils % (Auto) 0 % (0-2.5); Eosinophils # (Auto) 0.5 Thou/mm3 (0.0-0.5); Eosinophils % (Auto) 6 % (0-10); Hematocrit 30.8 % (36.0-46.0); Hemoglobin 10.1 g/dL (12.0-16.0); Immature Granulocytes % (Auto) 1 % (0-0); Lymphocytes # (Auto) 3.3 Thou/mm3 (1.0-4.8); Lymphocytes % (Auto) 40 % (10-50); Mean Corpuscular HGB Conc 32.8 g/dl (31.0-37.0); Mean Corpuscular Volume 89 fL (80-100); Monocytes # (Auto) 0.6 Thou/mm3 (0.0-0.8); Monocytes % (Auto) 7 % (0-12); Neutrophils # (Auto) 3.8 Thou/mm3 (1.8-7.7); Neutrophils % (Auto) 45 % (37-80); Nucleated Red Blood Cell % 0 /100 WBC (0); Platelet Count 172 Thou/mm3 (140-440); RDW Standard Deviation 44.5 fL (36.4-46.3); Red Blood Count 3.48 Miln/mm3 (4.00-5.20); White Blood Count 8.3 Thou/mm3 (3.6-11.0)
[2024-11-18 08:00] VITALS: BP 113/70; PULSE 86; RESP 18; TEMP 36.3; O2SAT 94
[2024-11-18] MEDS: ENOXAPARIN SOD INJ 40 MG/0.4 ML SYRINGE SC (08:04)
[2024-11-18 08:16] VITALS: PULSE 87; RESP 18; RESP 99; O2SAT 99
[2024-11-18] MEDS: NAPH,KPH MBDB 1 PACKET (1.5 GM) GT (09:41)
[2024-11-18] MEDS: POTASSIUM CHLORIDE 10% 20 MEQ/15 ML UDC 40 MEQ GT (09:42)
--- NOTE | 2024-11-18 11:06 | PD.RESDS ---
Planned Discharge Date 11/18/24 DS: Providers Provider Date of admission: 11/16/24 04:47 Primary care physician: Physician No Primary/Family Admitting Provider: Dave Jenkins MD Attending Provider on Admission: Wayne Hobbs MD Consults: 11/16/24 05:25 Referral Registered Dietitian Stat Comment: 11/16/24 09:03 Consult to Gastroenterology Routine Comment: PEG tube evaluation Consulting Provider: Anahi Roberts 11/16/24 13:58 Referral Speech Therapy Routine Comment: 11/17/24 08:30 Referral - [employer]URE [employer]SEM[employer]ER Protective Signal Operator Routine Comment: corey Mcelroy Attending Provider on DC: Sukhdev Kenny MD Discharging Provider: Sukhdve Kenny MD DS: Diagnosis Problem List Completed Was Problem List Reviewed/Reconciled?: Yes Hospital Course Hospital Course Hospital course: Stella is a 64 y/o female with PMHx CVA right hemiparesis, s/p PEG tube placement, migraine headaches, depression, recurrent SBO presented to [facility] ED complaining of worsening painful left-sided facial redness starting from under the eyelid extending down to mandible. CT scan was ordered which was evident of early cellulitis. Pt was started on IV antibiotics Unasyn. During admission it was also noted that Pt's PEG appeared to be dislodged. GI was consulted for evaluation and PEG tube was replaced and tube feeds were resumed. Pt is also able to tolerate oral diet with some assistance due to right hemipharesis from previous stroke. Pt's blood cultures and MRSA negative. wound culture grew strep pyogenes which is sensitive to currently antibiotics pt is on. Pt is hemodynamically stable to be discharge back to SNF on oral antibiotics for additional 7 days. Pt is advised to promptly return to the ED if symptoms reoccur or worsen. Discharge Recommendations -Follow up with your primary care physician within 2 weeks -You have been prescribe antibiotics called Augmentin for additional 7 days to complete the course -Take you medications as directed -If you symptoms recur or worsen, promptly return to the ED. Hospitalization Diagnosis #Sepsis secondary to - ruled #Facial cellulitis #G-tube dependent #Hx of recurrent SBO #Hx of CVA with residual R sided motor deficit #Broca's aphagia #Bedbound #Hyperlipidemia #Hx of depression #Hx of Migraines Time Spent with Patient Time attestation: Total time spent providing and/or coordinating discharge services: Exam Vital Signs Temp Pulse Resp BP Pulse Ox O2 Del Method 97.3 F 87 18 113/70 99 Room Air 11/18/24 08:00 11/18/24 08:16 11/18/24 08:16 11/18/24 08:00 11/18/24 08:16 11/18/24 08:00 Narrative Exam GENERAL: elderly female with broca's aphasia, communicates via writing on paper NEURO: right hemispheres HEENT: Atraumatic, Normocephalic. mucous membranes moist. Eyes open, symmetrical, & clear HEART: Normal Heart Sounds LUNGS: Clear to auscultation with no wheezing or crackles. ABDOMEN: soft, non-distended, non-tender, bowel sounds heard, no guarding or rebound tenderness, PEG tube is in place with greenish discharge around it SKIN: No Rash or ecchymoses, erythema and warm along the jaw line, and later side of the nose on left side (improved) EXTREMITIES: No edema, tenderness, pedal pulses palpated Discharge Plan Plan Patient Disposition: Xfer Skilled Nsg Fac (SNF) Patient condition on transfer: Stable Care Plan Goals: -Follow up with your primary care physician within 2 weeks -You have been prescribe antibiotics called Augmentin for additional 7 days to complete the course -Take you medications as directed -If you symptoms recur or worsen, promptly return to the ED. Prescriptions/Referrals Prescriptions/Med Rec: New amoxicillin-pot clavulanate 875-125 mg tablet 1 tab PO Q12H 7 Days Qty: 14 0RF Continued atorvastatin 40 mg tablet 40 mg feeding tube HS Rx Instructions: give one tavlet via G-tube at bedtime for Hyperlipidemia bisacodyl [Dulcolax (bisacodyl)] 10 mg Suppository 10 mg MD Q72H PRN (Reason: Constipation) Rx Instructions: Insert one rectally every 72hours as needed for constipation IF MOM is ineffective amitriptyline 50 mg Tablet 25 mg PO HS Rx Instructions: give one tablet by mouth at bedtime for depression potassium chloride 20 mEq tablet,ER particles/crystals 20 meq PO BID Rx Instructions: Give 1 tablet 20 mEq via G-tube 2x a day for hypokalemia, dissolve in water before administering via tube Linzess 145 mcg capsule 145 mcg PO QDAY Rx Instructions: hold for loose stools alendronate 70 mg tablet 70 mg PO QWEEK Rx Instructions: Give 1 tabletby mouth in the morning every Sun for osteoporosis. Jevity 1.2 Eleno 0.06 gram-1.2 kcal/mL Liquid See Rx Instructions .ROUTE .COMPLEX Rx Instructions: 237 mL 3x a day via feeding tube related to encounter for attention to gastronomy gabapentin 300 mg capsule 300 mg PO Q8HR ipratropium-albuterol 0.5 mg-3 mg(2.5 mg base)/3 mL Solution For Nebulization 3 ml INHALATION QID Rx Instructions: FOR SOB UNTIL 09/29/2024 23:59 ondansetron HCl 8 mg Tablet 8 mg PO Q6HR PRN (Reason: Nausea/Vomiting) magnesium hydroxide [Milk of Magnesia] 400 mg/5 mL Suspension 30 ml PO Q72H PRN (Reason: Constipation) Rx Instructions: if no BM for 3 consecutive days lactulose [Enulose] 10 gram/15 mL solution 30 ml feeding tube BID Rx Instructions: Give 30ml via G-Tube one time a day for HOLD for diarrrhea acetaminophen [Tylenol] 325 mg Tablet 650 mg PO Q12HR PRN (Reason: Mild Pain (1-3)) Rx Instructions: Give w tablet via G-tube every 12 hours hours as needed for Mild Pain (1-3) APAP NTE 3grams/24hrs Fleet Enema 19-7 gram/118 mL Enema 118 ml MD QDAY PRN (Reason: Constipation) Rx Instructions: Insert 1 application rectally every 72 hours as needed for constipation if MOM/DULCOLAX SUPPOSITORY ineffective. docusate sodium 100 mg Tablet 100 mg PO BID Rx Instructions: VIA G TUBE Discontinued nitrofurantoin macrocrystal 100 mg capsule 100 mg PO BID Qty: 6 0RF Rx Instructions: must administer with a meal/food Referrals: No Primary/Family,Physician [Primary Care Provider] - Patient/Caregiver Discharge Instructions Print Language: Yi Stand Alone Forms: Reba Award Info., Patient Portal Info Letter Discharge Order Discharge Orders: Discharge (Routine); Ordered 11/18/24 Ordered By: Sukhdev Kenny Quality Discharge Quality Measures VTE prophylaxis Attestestation MD Attestation I reviewed labs, imaging, EKG, home medications and prior available records. Face to face evaluation was performed by me. I have personally examined the patient and discussed assessment and plan with the IM team. I reviewed the resident note and agree with the plan with exceptions as below. Left face cellulitis Leukocytosis History of CVA with Broca's aphasia Dysphagia status post PEG tube PEG tube malfunction Will discharge on p.o. Augmentin Follow-up cultures: Wound culture showed strep a pyogenes that is sensitive to penicillin. Will discharge on 1 week of Augmentin Trend WBC: Downtrending PEG tube was replaced by GI. Discussed with dietitian: Will continue Jevity plus oral pur?ed diet Discussed the plan of care with the patient's sister who was okay with the discharge Time spent is 45 minutes. More than 50% of the time was spent on patient education and coordination of care.
[2024-11-18 12:00] VITALS: BP 151/51; PULSE 68; RESP 17; TEMP 36.2; O2SAT 95
--- NOTE | 2024-11-18 13:33 | PC.NURSE ---
Report given to receiving nurse Alda BHAKTA at [facility]. DC instructions reviewed and included in packet.
[2024-11-18 14:05] VITALS: BP 112/65; PULSE 84; RESP 17; TEMP 36.1; O2SAT 96
--- NOTE | 2024-11-18 14:41 | PC.SS ---
Online Project Manager (ALEC) Kaela informed by Senior Resident Dr. Goodwin that patient was ready for discharge. ALEC contacted Admission Coordinator, Hetal at [facility] whom reported that patient was welcome to return. ALEC completed transfer packet. ALEC scheduled transportation through [employer] for [employer]; [employer] will take patient to [facility]. ALEC notified patient's sister, Noreen.
== END 2024-11-18 15:40 | disposition skilled nursing facility (03) | DRG 603 ==
LOC: SERX 11-16 04:39 → SERHOLD 11-16 05:27 → S3SX 11-16 15:07
PROVIDERS: Admitting Provider Internal Medicine; Emergency Provider Emergency Medicine; Visit Provider Student in an Organized Health Care Education/Training Program
DX: L03.211 Cellulitis of face (principal); F33.9 Major depressive disorder, recurrent, unspecified; I69.351 Hemiplegia and hemiparesis following cerebral infarction affecting right dominant side; K94.23 Gastrostomy malfunction; I69.320 Aphasia following cerebral infarction; E87.6 Hypokalemia; R60.9 Edema, unspecified; G43.909 Migraine, unspecified, not intractable, without status migrainosus; E78.5 Hyperlipidemia, unspecified; R13.0 Aphagia; M81.0 Age-related osteoporosis without current pathological fracture; Z74.01 Bed confinement status; Z79.83 Long term (current) use of bisphosphonates; Z79.899 Other long term (current) drug therapy; Z87.891 Personal history of nicotine dependence
CPT/HCPCS: 36415; 70491; 71045; 80048; 80053; 80061; 80202; 81001; 83036; 83605; 83615; 83690; 83735; 83880; 84100; 84145; 84443; 84484; 85025; 85610; 85730; 87040; 87070; 87077; 87081; 87086; 87186; 87205; 92610; 96365; 96366; 96367; 96372; 99291; A4649; J0131; J0295; J0696; J1200; J1650; J3370; J3371; J3475; J7030; J7050; Q9967; A9270

== ENCOUNTER → 2024-12-14 | Outpatient (CLI) | payer MEDICARE, BC, SELFPAY ==
[2024-12-14 15:27] LABS: Collection Type, Urine Clean Catch
[2024-12-14 17:59] LABS: Bilirubin,Urine Negative (Negative); Blood,Urine Negative (Negative); Clarity,Urine Clear (Clear/Hazy); Color,Urine Yellow (Lt Yel-Yel); Glucose, Urine Negative (Negative); Ketones,Urine Negative (Negative); Leukocyte Esterase,Urine Positive (Negative); Nitrite,Urine Negative (Negative); PH,Urine 6.5 (5.0-7.0); Protein,Urine Negative (Neg - Trace); RBC,Urine 3 /hpf (0-3); Specific Gravity,Urine 1.015 (1.001-1.035); Squamous Epithelial Cell,Urine < 1 /hpf (0-5); Urobilinogen,Urine Negative mg/dL (0.0-1.0); WBC,Urine 12 /hpf (0-5)
== END | disposition home or self-care (01) ==
LOC: SLDO 15:14
PROVIDERS: PCP Family Medicine; Referring Provider Family Medicine; Visit Provider Family Medicine
DX: N39.0 Urinary tract infection, site not specified (principal)
CPT/HCPCS: 81001; 87086

== ENCOUNTER → 2025-01-16 | Outpatient (CLI) | payer MEDICARE, BC, MEDICAID, SELFPAY ==
--- NOTE | 2025-01-16 13:00 | XR_ITS ---
Examination: CT brain head without contrast. 2-D sagittal coronal reconstructions Date and time of exam:January 16, 2025 1302 hours Comparison May 26, 2022 CTDI: vol (mGy):47.6 DLP: (mGycm):1022 Technique: Multiple CT axial sections of the brain have been obtained, 5 mm slice thickness. Contrast has not been administered. 2-D sagittal, coronal reconstructions have been obtained Low dose protocols were performed. One or more of the following dose reduction techniques were used; automated exposure control, adjustment of the mA and/or KV according to patient size, use of iterative reconstruction technique. Findings: No significant ventricular enlargement. Again noted large old infarct left middle cerebral artery distribution with its lateral dilatation left frontal horn Minimal likely chronic subdural hygroma on the left peripheral to the left frontal lobe measuring 6 mm in thickness Intra-axial or extra-axial hemorrhage density is not seen. No mass effect or midline shift Basal cisterns are not remarkable. Fourth ventricle is midline. Cranial vault intact. Impression: No interval acute hemorrhage, mass effect or midline shift Recommend 1 month follow-up CT brain scan to document stability of small chronic subdural hygroma peripheral to the left frontal lobe
== END | disposition home or self-care (01) ==
PROVIDERS: Referring Provider Psychiatry & Neurology Neurology; Visit Provider Psychiatry & Neurology Neurology
DX: R51.9 Headache, unspecified (principal)
CPT/HCPCS: 70450

== ENCOUNTER → 2025-03-08 | Outpatient (CLI) | payer MEDICARE, BC, MEDICAID, SELFPAY ==
--- NOTE | 2025-03-08 10:00 | XR_ITS ---
Examination: CT brain head without contrast. 2-D sagittal coronal reconstructions Date and time of exam:March 08, 2025 1107 hours Comparison January 16, 2025 INDICATIONS: History headaches 5 years, large old infarct left middle cerebral artery distribution, minimal chronic subdural hygroma peripheral to the left frontal lobe on CT chest the brain January 16, 2025 CTDI: vol (mGy):50.8 DLP: (mGycm):1056 Technique: Multiple CT axial sections of the brain have been obtained, 5 mm slice thickness. Contrast has not been administered. 2-D sagittal, coronal reconstructions have been obtained Low dose protocols were performed. One or more of the following dose reduction techniques were used; automated exposure control, adjustment of the mA and/or KV according to patient size, use of iterative reconstruction technique. Findings: Again noted large old infarct left middle cerebral artery distribution No current significant extra-axial fluid accumulation Again noted ipsilateral ventricular dilatation No interval acute hemorrhage or mass effect IMPRESSION: Again noted large old infarct left middle cerebral artery distribution No interval hemorrhage or mass effect
== END | disposition home or self-care (01) ==
PROVIDERS: PCP Family Medicine; Referring Provider Psychiatry & Neurology Neurology; Visit Provider Psychiatry & Neurology Neurology
DX: I63.89 Other cerebral infarction (principal)
CPT/HCPCS: 70450

== ENCOUNTER → 2025-05-29 | Outpatient (CLI) | payer MEDICARE, BC, MEDICAID, SELFPAY ==
--- NOTE | 2025-05-29 08:00 | XR_ITS ---
Examination: CT brain head without contrast. 2-D sagittal coronal reconstructions Date and time of exam: May 29, 2025, 0726 hours INDICATIONS: Diagnosis nontraumatic subdural hemorrhage, frequent headaches 2 months, history large old infarct left middle cerebral artery distribution on CT brain scan March 08, 2025 CTDI: vol (mGy): 50.9 DLP: (mGycm): 1089 Technique: Multiple CT axial sections of the brain have been obtained, 5 mm slice thickness. Contrast has not been administered. 2-D sagittal, coronal reconstructions have been obtained Low dose protocols were performed. One or more of the following dose reduction techniques were used; automated exposure control, adjustment of the mA and/or KV according to patient size, use of iterative reconstruction technique. Findings: Large old infarct left middle cerebral artery distribution again noted with ipsilateral ventricular dilatation Intra-axial or extra-axial hemorrhage density is not seen. No mass effect or midline shift Basal cisterns are not remarkable. Fourth ventricle is midline. Cranial vault intact. Impression: No interval acute hemorrhage, mass effect or midline shift
== END | disposition home or self-care (01) ==
PROVIDERS: PCP Family Medicine; Referring Provider Psychiatry & Neurology Neurology; Visit Provider Psychiatry & Neurology Neurology
DX: I62.00 Nontraumatic subdural hemorrhage, unspecified (principal)
CPT/HCPCS: 70450